=== PATIENT | female | born 1940 | race Caucasian/White ===

== ENCOUNTER → 2016-04-19 | Outpatient (CLI) | payer OTHER ==
[~2016-04-19] MED LIST: IOPAMIDOL (ISOVUE-300) 100 ML BTL IV ONE
== END ==
LOC: FIMAGING 15:23
PROVIDERS: ATTEND Internal Medicine
DX: R18.8 Other ascites (principal); R10.9 Unspecified abdominal pain; R91.8 Other nonspecific abnormal finding of lung field; R63.5 Abnormal weight gain
CPT/HCPCS: 74177; Q9967

== ENCOUNTER 2016-05-26 10:17 | Day surgery (SDC) | payer OTHER ==
[2016-05-26] MEDS ORDERED: LR 1,000 ML IV ONE (11:15)
[2016-05-26] MEDS ORDERED: ceFAZolin 2 GM/DEXTROSE 100 ML IV ONE (11:30)
[2016-05-26] MEDS ORDERED: SKIN ADHESIVE (DERMABOND) 1 EACH TP ONE (12:44)
[2016-05-26] MEDS ORDERED: BUPIVACAINE 0.5% 30 ML SDV ONE (12:45)
[2016-05-26] MEDS ORDERED: MIDAZOLAM 2 MG/2 ML VIAL ONE (13:13)
[2016-05-26] MEDS ORDERED: fentaNYL 100 MCG/2 ML INJ ONE (13:18)
[2016-05-26] MEDS ORDERED: PROPOFOL/EMULSION 500 MG/50 ML BOTTLE IV ONE (13:18)
[2016-05-26] MEDS ORDERED: LIDOCAINE 2% 100 MG/5 ML SYR ONE (13:20)
[2016-05-26] MEDS ORDERED: LIDO/EPI 1% **for epidural** 30 ML SDV ONE (13:36)
[2016-05-26] MEDS ORDERED: LIDOCAINE 1% 30 ML SDV ONE (13:37)
[2016-05-26] MEDS ORDERED: LIDO/EPI 1% **Not for Epidural 20 ML MDV ONE (13:37)
--- NOTE | 2016-05-26 15:59 | GOP ---
[f rep st] OPERATIVE REPORT DATE OF OPERATION: 05/26/2016 SURGEON: Lissa James MD ANESTHESIA: IV general. ANESTHESIOLOGIST: Dr. Berumen. PREOPERATIVE DIAGNOSIS: Ovarian cancer. POSTOPERATIVE DIAGNOSIS: Ovarian cancer. PROCEDURE PERFORMED: Left subclavian PowerPort placement. FINDINGS: Tip in the SVC/RA junction. ESTIMATED BLOOD LOSS: 10 cc. INDICATIONS: The patient is a 75-year-old woman with ovarian cancer. She requires a port for chemo therapy. DESCRIPTION OF PROCEDURE: Velma was brought into the operating room and placed supine on the table. An IV general anesthesia was administered. Her bilateral neck and chest were prepped and draped i n the usual sterile fashion. I infiltrated all sites with 0.5% Marcaine prior to making incisions. I accessed her left subclavian vein with the first attempt with dark return of blood flow. I threa ded the guidewire and removed the needle. Placement was confirmed with fluoroscopy. I created a po cket to accommodate the port in the left chest. I tunneled it up to the insertion site. I measured the port under fluoroscopy and cut it to size. Using the Seldinger technique, I placed a dilator a nd sheath over the wire. I removed the wire and the dilator. I threaded the catheter through the s shea. Placement was confirmed with fluoroscopy. The port withdrew blood easily and was flushed wi th heparin. The pocket was closed with 3-0 Vicryl, followed by 4-0 Monocryl. Dermabond applied. S he was awakened in the operating room, transferred to PACU in stable condition. The chest x-ray josie wed excellent port placement without pneumothorax. /[id number]/MODL
== END 2016-05-26 15:35 | disposition home or self-care (01) ==
LOC: FSGY 10:17
PROVIDERS: ATTEND Surgery
DX: C57.8 Malignant neoplasm of overlapping sites of female genital organs (principal); E78.5 Hyperlipidemia, unspecified; I10 Essential (primary) hypertension; Z90.710 Acquired absence of both cervix and uterus; Z90.722 Acquired absence of ovaries, bilateral; Z88.0 Allergy status to penicillin
CPT/HCPCS: C1788; J0690; J2001; J2250; J2704; J3010

== ENCOUNTER → 2017-01-05 | Outpatient (CLI) | payer OTHER | LOC: FIMAGING 09:36 | PROVIDERS: ATTEND Internal Medicine | DX: Z12.31 Encounter for screening mammogram for malignant neoplasm of breast (principal) | CPT/HCPCS: G0202 ==

== ENCOUNTER → 2018-01-31 | Outpatient (CLI) | payer OTHER | LOC: FIMAGING 11:47 | PROVIDERS: ATTEND Internal Medicine | DX: Z12.31 Encounter for screening mammogram for malignant neoplasm of breast (principal) ==

== ENCOUNTER 2018-04-11 14:30 | Inpatient (IN) | payer OTHER ==
--- NOTE | 2018-04-11 14:38 | EDPHY ---
H & P Time Seen by Provider: 04/11/18 14:38 HPI/ROS: CHIEF COMPLAINT: Weakness HISTORY OF PRESENT ILLNESS: Patient is a history of ovarian cancer. She says that she has had abdominal pain for the past 2 months. Since Sunday she has had a little bit of a cough with worsening shortness of breath and worsening lower abdominal pain. Today associated with decreased oral intake and generalized weakness. Sent [facility] for evaluation. Does not have associated headache, no visual symptoms or focal neurologic changes. Treated 2 weeks ago for a urinary tract infection per family. No history of cardiac dysrhythmia. Symptoms severe today. Worse with any attempts to exert herself. REVIEW OF SYSTEMS: Eye: no change in vision ENT: no sore throat Cardiac: no chest pain or syncope Pulmonary: HPI Abdomen: Recent diarrhea Musculoskeletal: no back pain Skin: no rash Neuro: no headache Constitutional: no fever : Currently on Macrobid for recent diagnosis of UTI A comprehensive 10 point review of systems is otherwise negative aside from elements mentioned in the history of present illness. PAST MEDICAL HISTORY: Includes hypertension, hypothyroid, ovarian cancer Social history: Here with family, nonsmoker General Appearance: Alert and conversant, cooperative. Eyes: No scleral icterus. ENT, Mouth: Dry mucous membranes. Respiratory: Normal respiratory effort, breath sounds equal, lungs are clear to auscultation. Cardiovascular: Irregularly irregular and tachycardic. Gastrointestinal: Bilateral lower abdominal tenderness without rebound or guarding. Neurological: Alert, face symmetric, normal motor and sensory in extremities. Skin: Warm and dry, no rashes. Musculoskeletal: No peripheral edema. Psychiatric: Not agitated. Emergency Department course/MDM: Initial heart rate 121, afebrile, 89% on room air. Patient is tachypneic and tachycardiac with EKG showing rapid atrial fibrillation. Moderate to high suspicion for pulmonary embolism. Plan for IV fluid hydration for clinical dehydration with dry mucous membranes and decreased oral intake, diltiazem drip, labs to include CBC chemistry LFT and lipase and troponin. 1512: I-STAT creatinine is 2.9. Plan for D-dimer, CT abdomen pelvis without IV contrast, chest x-ray, Lovenox 1 milligram/kilogram subcutaneous should be adequate to cover the patient for her atrial fibrillation as well as possible pulmonary embolism. Supplemental oxygen applied, IV diltiazem drip started. IV fluid resuscitation. 1539: Patient alert, blood pressure transiently to 80 systolic on diltiazem drip, 2nd L normal saline IV ordered. Lovenox subcutaneous discussed and consented. 162: free air on CT per Deondre. Abelino stephenson, surgical consultation by Dr. Costa, has seen Dr. James here in the past for procedure. 173: Blood pressure 102 systolic, still on diltiazem drip. Received IV fluid resuscitation in ED. Plan to go to the operating room tonight per Dr. Costa. 1999: Central line placement see procedure note for details. Smoking Status: Never smoked Constitutional: Initial Vital Signs Temperature (C) 36.4 C 04/11/18 14:34 Heart Rate 121 H 04/11/18 14:34 Respiratory Rate 18 04/11/18 14:34 Blood Pressure 147/83 H 04/11/18 14:34 O2 Sat (%) 89 L 04/11/18 14:34 O2 Delivery Mode Room Air Allergies/Adverse Reactions: tetracycline [Tetracycline] Allergy (Intermediate, Verified 04/11/18 14:37) Hives Penicillins Allergy (Mild, Verified 04/11/18 14:37) Rash resveratrol [grapes] Allergy (Verified 04/11/18 14:37) Home Medications: Medication Instructions Recorded Cetirizine [ZyrTEC 10 mg (*)] 10 mg PO DAILY 07/01/14 Cholecalciferol Vit D3 [Vitamin D3 1,000 units PO DAILY 07/01/14 (*)] Lisinopril [Zestril 40 mg (*)] 40 mg PO DAILY 07/01/14 Simvastatin [Zocor] 20 mg PO HS 07/01/14 amLODIPine BESYLATE [Norvasc 5 mg 5 mg PO DAILY #0 tab 07/02/14 (*)] Albuterol [Proventil Inhaler HFA 2 puffs IH Q6 PRN 04/11/18 (*)] Chlorthalidone [Chlorthalidone 25 25 mg PO DAILY 04/11/18 mg (*)] Fluticasone Nasal [Flonase Nasal 2 sprays EACHNARE DAILY 04/11/18 [place] (RX)] Herbals/Supplements -Info Only 1 ea PO DAILY 04/11/18 Methotrexate Sodium [Rheumatrex 7.5 mg PO FR 04/11/18 2.5 mg (RX)] Risedronate Sodium [Actonel] 150 mg PO Q30D 04/11/18 Medical Decision Making - Diagnostics EKG Interpretation: 12-lead EKG interpreted by me; official reading is in computer system. My interpretation is AFib with RVR rate 182 Imaging Results: Imaging Impressions Abdomen/Pelvis CT 04/11/18 15:12 Impression: 1. Free intraperitoneal air of unclear source. Inflammation and fluid appears to be centered principally with small bowel in the central abdomen, however, there is air and stranding anterior to diverticulosis in the sigmoid colon, with equivocal thickening of the sigmoid in the region, making it difficult to exclude diverticulitis. 2. Slight interval worsening of disease. 3. Increased carcinomatosis. 4. Tiny new right middle lobe nodule. 5. Equivocal increase in a left periaortic node. 6. Additional findings, as above. Findings discussed with Hebert Desai M.D., on April 11, 2018 at 1622. Attention: This examination does not use radiographic contrast, and as such, provides only a limited evaluation of the abdomen, pelvis, and retroperitoneum. Chest X-Ray 04/11/18 15:12 Impression: 1. Equivocal left lower lobe infiltrate. If clinically indicated consider obtaining a routine PA chest or noncontrast chest CT for confirmation. 2. Possible cardiomegaly and/or pericardial effusion. Imaging: Discussed imaging studies w/ food service agent Radiologist Procedures: Procedure: Central line placement. Indication: Hypotension and need for pressors. Risks, benefits, alternatives discussed with the patient and family including but not limited to bleeding, infection, vascular injury, and collapsed lung and consent obtained. A timeout was observed. Full maximal sterile barrier technique was used including cap, gown, sterile gloves, large sheet, hand washing and chlorhexidine prep. The area was anesthetized with 1% lidocaine. A 7 [place] triple lumen was placed in the right subclavian vein using standard Seldinger technique. There were no complications. Blood return low pressure, dark blood. Patient tolerated procedure well. CXR results: Appropriate line placement, and no pneumothorax. Xray was interpreted by myself. Radiologist interpretation is pending. The procedure was performed by myself, completed at 8:00 p.m. The patient's room in the ICU. Consult/Admit Bed Type: [facility], Costa 1632 Critical Care Time: Critical care time spent by me, Dr. Desai, exclusively with the care of this patient was 45 minutes, exclusive of PA or CCIE time and exclusive of separate procedures. The organ system at risk was cardiovascular and metabolic and I ordered IV diltiazem, IV fluids, multiple diagnostics and supplemental oxygen to stabilize the patient and prevent worsening of the patient's condition. - Data Points Laboratory Results: Laboratory Results 04/11/18 15:06 04/11/18 15:06 04/11/18 04/11/18 04/11/18 15:10 15:06 15:06 WBC RBC Hgb POC Hgb 17.0 gm/dL H gm/dL (12.6-16.3) Hct POC Hct 50 % H % (38-47) MCV MCH MCHC RDW Plt Count MPV Neut % (Auto) Lymph % (Auto) [place] % (Auto) Eos % (Auto) Baso % (Auto) Nucleat RBC Rel Count Absolute Neuts (auto) Absolute Lymphs (auto) Absolute Monos (auto) Absolute Eos (auto) Absolute Basos (auto) Absolute Nucleated RBC Immature Gran % Immature Gran # PT 14.1 SEC SEC (12.0-15.0) INR 1.07 (0.83-1.16) APTT 26.4 SEC SEC (23.0-38.0) D-Dimer 11.22 ug/mLFEU H ug/mLFEU (0.00-0.50) POC Sodium 133 mEq/L L mEq/L (135-145) Sodium POC Potassium 3.1 mEq/L L mEq/L (3.3-5.0) Potassium POC Chloride 97 mEq/L mEq/L (97-110) Chloride Carbon Dioxide POC Total CO2 18 mEq/L L mEq/L (22-31) Anion Gap POC BUN 67 mg/dL H mg/dL (7-23) BUN Creatinine POC Creatinine 2.9 mg/dL H mg/dL (0.6-1.0) Estimated GFR Glucose POC Glucose 128 mg/dL H mg/dL (70-100) Calcium Total Bilirubin Conjugated Bilirubin Unconjugated Bilirubin AST ALT Alkaline Phosphatase POC Troponin I 0.06 ng/mL ng/mL (0.00-0.08) Total Protein Albumin Lipase Nasal Influenza A PCR Nasal Influenza B PCR 04/11/18 04/11/18 04/11/18 15:06 15:06 14:20 WBC 12.79 10^3/uL H 10^3/uL (3.80-9.50) RBC 5.48 10^6/uL H 10^6/uL (4.18-5.33) Hgb 16.0 g/dL g/dL (12.6-16.3) POC Hgb Hct 48.2 % H % (38.0-47.0) POC Hct MCV 88.0 fL fL (81.5-99.8) MCH 29.2 pg pg (27.9-34.1) MCHC 33.2 g/dL g/dL (32.4-36.7) RDW 14.3 % % (11.5-15.2) Plt Count 345 10^3/uL 10^3/uL (150-400) MPV 10.2 fL fL (8.7-11.7) Neut % (Auto) 87.4 % H % (39.3-74.2) Lymph % (Auto) 5.3 % L % (15.0-45.0) [place] % (Auto) 6.4 % % (4.5-13.0) Eos % (Auto) 0.0 % L % (0.6-7.6) Baso % (Auto) 0.4 % % (0.3-1.7) Nucleat RBC Rel Count 0.0 % % (0.0-0.2) Absolute Neuts (auto) 11.18 10^3/uL H 10^3/uL (1.70-6.50) Absolute Lymphs (auto) 0.68 10^3/uL L 10^3/uL (1.00-3.00) Absolute Monos (auto) 0.82 10^3/uL H 10^3/uL (0.30-0.80) Absolute Eos (auto) 0.00 10^3/uL L 10^3/uL (0.03-0.40) Absolute Basos (auto) 0.05 10^3/uL 10^3/uL (0.02-0.10) Absolute Nucleated RBC 0.00 10^3/uL 10^3/uL (0-0.01) Immature Gran % 0.5 % % (0.0-1.1) Immature Gran # 0.06 10^3/uL 10^3/uL (0.00-0.10) PT INR APTT D-Dimer POC Sodium Sodium 131 mEq/L L mEq/L (135-145) POC Potassium Potassium 3.3 mEq/L L mEq/L (3.5-5.2) POC Chloride Chloride 96 mEq/L L mEq/L (97-110) Carbon Dioxide 18 mEq/l L mEq/l (22-31) POC Total CO2 Anion Gap 17 mEq/L H mEq/L (6-14) POC BUN BUN 76 mg/dL H mg/dL (7-23) Creatinine 2.9 mg/dL H mg/dL (0.6-1.0) POC Creatinine Estimated GFR 16 Glucose 131 mg/dL H mg/dL (70-100) POC Glucose Calcium 8.6 mg/dL mg/dL (8.5-10.4) Total Bilirubin 1.1 mg/dL mg/dL (0.1-1.4) Conjugated Bilirubin 0.7 mg/dL H mg/dL (0.0-0.5) Unconjugated Bilirubin 0.4 mg/dL mg/dL (0.0-1.1) AST 42 IU/L IU/L (14-46) ALT 32 IU/L IU/L (9-52) Alkaline Phosphatase 133 IU/L H IU/L (38-126) POC Troponin I Total Protein 6.2 g/dL L g/dL (6.3-8.2) Albumin 3.3 g/dL L g/dL (3.5-5.0) Lipase 121 IU/L IU/L (23-300) Nasal Influenza A PCR NEGATIVE FOR FLU A (NEGATIVE) Nasal Influenza B PCR NEGATIVE FOR FLU B (NEGATIVE) Medications Given: Norepinephrine 4 mg/ Sodium (Chloride) 504 mls @ 0 mls/hr IV CONT MERRICK; Per Protocol PRN Reason: Protocol Stop: 10/08/18 16:59 Last Admin: 04/11/18 19:44 Dose: 504 mls Albumin Human (Alburx 5) 500 mls @ 0 mls/hr IV ONCE ONE PRN Reason: As Directed Stop: 04/11/18 20:31 Last Admin: 04/11/18 20:19 Dose: 500 mls Discontinued Medications Digoxin (Lanoxin Injections) 125 mcg IVP ONCE ONE Stop: 04/11/18 19:57 Last Admin: 04/11/18 20:15 Dose: 125 mcg Enoxaparin Sodium (Lovenox) 80 mg SC EDNOW ONE Stop: 04/11/18 15:34 Last Admin: 04/11/18 16:21 Dose: 80 mg Sodium Chloride (Ns) 1,000 mls @ 0 mls/hr IV EDNOW ONE; Wide Open PRN Reason: Protocol Stop: 04/11/18 14:42 Last Admin: 04/11/18 15:18 Dose: 1,000 mls Diltiazem/Dextrose (Diltiazem 125mg/125ml (Premix)) 125 mls @ 0 mls/hr IV EDNOW ONE; Titrate PRN Reason: Protocol Stop: 04/11/18 15:31 Last Admin: 04/11/18 17:45 Dose: 125 mls Sodium Chloride (Ns) 1,000 mls @ 0 mls/hr IV EDNOW ONE; Wide Open PRN Reason: Protocol Stop: 04/11/18 15:40 Last Admin: 04/11/18 15:40 Dose: 1,000 mls Sodium Chloride (Ns) 1,000 mls @ 0 mls/hr IV ONCE ONE PRN Reason: Wide Open Stop: 04/11/18 16:31 Last Admin: 04/11/18 16:35 Dose: 1,000 mls Ertapenem 1 gm/ Sodium (Chloride) 100 mls @ 200 mls/hr IV EDNOW ONE PRN Reason: Protocol Stop: 04/11/18 16:55 Last Admin: 04/11/18 17:17 Dose: 100 mls Metoprolol Tartrate (Lopressor Injection) 5 mg IVP ONCE ONE Stop: 04/11/18 16:16 Last Admin: 04/11/18 17:57 Dose: Not Given Point of Care Test Results: Chemistry 04/11/18 04/11/18 15:10 15:06 POC Sodium 133 mEq/L L mEq/L (135-145) POC Potassium 3.1 mEq/L L mEq/L (3.3-5.0) POC Chloride 97 mEq/L mEq/L (97-110) POC Total CO2 18 mEq/L L mEq/L (22-31) POC BUN 67 mg/dL H mg/dL (7-23) POC Creatinine 2.9 mg/dL H mg/dL (0.6-1.0) POC Glucose 128 mg/dL H mg/dL (70-100) POC Troponin I 0.06 ng/mL ng/mL (0.00-0.08) ISTAT H&H 04/11/18 15:10 POC Hgb 17.0 gm/dL H gm/dL (12.6-16.3) POC Hct 50 % H % (38-47) Departure - Departure Disposition: [facility] Inpatient Acute Clinical Impression: EDGAR (acute kidney injury), Free intraperitoneal air Atrial fibrillation Qualifiers: Atrial fibrillation type: paroxysmal Qualified Code(s): I48.0 - Paroxysmal atrial fibrillation Condition: Serious
[2018-04-11] MEDS ORDERED: NS 1,000 ML IV ONE ×3 (14:41→16:30)
[2018-04-11] MEDS ORDERED: DILTIAZEM 125 MG in D5W 125 ML IV ONE (14:57)
--- NOTE | 2018-04-11 15:01 | CPEKG ---
Test Reason : OPEN Blood Pressure : / mmHG Vent. Rate : 182 BPM Atrial Rate : 155 BPM P-R Int : 233 ms QRS Dur : 092 ms QT Int : 265 ms P-R-T Axes : 216 061 017 degrees QTc Int : 461 ms Atrial fibrillation with rapid V-rate Repolarization abnormality, prob rate related Confirmed by Hebert Desai ([id number]) on 04/11/2018 3:01:01 PM Referred By: Hebert Desai Confirmed By:Hebert Desai
[2018-04-11] MEDS: DILTIAZEM HCL/D5W 125 ML IV ONE ×2 (15:32→17:45)
[2018-04-11] MEDS ORDERED: ENOXAPARIN 80 MG/0.8 ML SYR SC ONE (15:33)
[2018-04-11 15:35] LABS: INR 1.07 (0.83-1.16); PROTIME(PATIENT) 14.1 SEC (12.0-15.0)
[2018-04-11 15:42] LABS: PLATELET COUNT 345 10^3/uL (150-400)
[2018-04-11] MEDS ORDERED: METOPROLOL TARTRATE 5 MG/5 ML INJ IVP ONE ×2 (16:15→21:00)
[2018-04-11] MEDS ORDERED: ERTAPENEM 1 GM in NS 100 ML IV ONE (16:26)
--- NOTE | 2018-04-11 16:40 | PDGENHP ---
History and Physical - Chief Complaint malaise, cough, abd pain - History of Present Illness This is a 77 yo female with hx of of ovarian cancer who p/w malaise, chills, cough, abd pain x 2-3 days. She was worse today and presented to [facility] for evaluation and was sent to the ER. Does not have associated headache, no visual symptoms or focal neurologic changes. Treated 2 weeks ago for a urinary tract infection per family. No history of cardiac dysrhythmia. Reports cough x several days. Afebrile. CXR does not show clear pneumonia Abd pain over the last 3 days, generalized, worse in the bilateral lower quadrants. She seems slight distention which she says is normal for her. Very tender She is on MTX for RA Not currently on treatment for Ovarian cancer Denies fevers In the ER she is found to be in Afib with presenting BP in the 140's. Rate is 160's. BP dropped to systolic 80's before medication for Afib. Cardizem drip started and BP stable in the 90s systolic, rate still in the 140's. No hx of CHF. no cp or leg swelling. No hx of Afib. AC started Fond to have EDGAR found to have leukocytosis PAST MEDICAL HISTORY: Includes hypertension, hypothyroid, ovarian cancer Social history: Here with family, nonsmoker FmHx: non contributory CT Abd: free air on CT per Deondre. Abelino 1 g, surgical consultation by Dr. Costa, has seen Dr. James here in the past for procedure. History Information - Allergies/Home Medication List Allergies/Adverse Reactions: tetracycline [Tetracycline] Allergy (Intermediate, Verified 04/11/18 14:37) Hives Penicillins Allergy (Mild, Verified 04/11/18 14:37) Rash resveratrol [grapes] Allergy (Verified 04/11/18 14:37) Home Medications: Cetirizine [ZyrTEC 10 mg (*)] 10 mg PO DAILY 07/01/14 [Last Taken 1 Day Ago ~] Cholecalciferol Vit D3 [Vitamin D3 (*)] 1,000 units PO DAILY 07/01/14 [Last Taken 1 Day Ago ~05/25/16] Lisinopril [Zestril 40 mg (*)] 40 mg PO DAILY 04/29/15 [Last Taken 1 Day Ago ~] Simvastatin [Zocor] 20 mg PO HS 07/01/14 [Last Taken 1 Week Ago ~05/19/16] Albuterol [Proventil Inhaler HFA (*)] 2 puffs IH Q6 PRN 04/11/18 [Last Taken Unknown] Chlorthalidone [Chlorthalidone 25 mg (*)] 25 mg PO DAILY 04/11/18 [Last Taken Unknown] Fluticasone Nasal [Flonase Nasal [place] (RX)] 2 sprays EACHNARE DAILY 04/11/18 [ Last Taken Unknown] Herbals/Supplements -Info Only 1 ea PO DAILY 04/11/18 [Last Taken Unknown] Methotrexate Sodium [Rheumatrex 2.5 mg (RX)] 7.5 mg PO FR 04/11/18 [Last Taken Unknown] Risedronate Sodium [Actonel] 150 mg PO Q30D 04/11/18 [Last Taken Unknown] I have personally reviewed and updated: medical history, social history - Social History Smoking Status: Never smoked Review of Systems Review of Systems: ROS: 10pt was reviewed & negative except for what was stated in HPI & below Physical Exam Physical Exam: Temp Pulse Resp BP Pulse Ox 36.4 C 149 H 18 99/64 L 97 04/11/18 14:34 04/11/18 16:00 04/11/18 14:34 04/11/18 16:00 04/11/18 16:00 Constitutional: no apparent distress Eyes: PERRL Ears, Nose, Mouth, Throat: moist mucous membranes, hearing normal Cardiovascular: irregularly irregular, tachycardia Respiratory: no respiratory distress, reduced air movement Gastrointestinal: tenderness (bilateral lower quadrants), distension, No guarding Skin: warm Neurologic: AAOx3 Psychiatric: interacting appropriately, not anxious, not encephalopathic Lab Data & Imaging Review 04/11/18 15:06 04/11/18 15:06 WBC 12.79 10^3/uL (3.80-9.50) H 04/11/18 15:06 RBC 5.48 10^6/uL (4.18-5.33) H 04/11/18 15:06 Hgb 16.0 g/dL (12.6-16.3) 04/11/18 15:06 POC Hgb 17.0 gm/dL (12.6-16.3) H 04/11/18 15:10 Hct 48.2 % (38.0-47.0) H 04/11/18 15:06 POC Hct 50 % (38-47) H 04/11/18 15:10 MCV 88.0 fL (81.5-99.8) 04/11/18 15:06 MCH 29.2 pg (27.9-34.1) 04/11/18 15:06 MCHC 33.2 g/dL (32.4-36.7) 04/11/18 15:06 RDW 14.3 % (11.5-15.2) 04/11/18 15:06 Plt Count 345 10^3/uL (150-400) 04/11/18 15:06 MPV 10.2 fL (8.7-11.7) 04/11/18 15:06 Neut % (Auto) 87.4 % (39.3-74.2) H 04/11/18 15:06 Lymph % (Auto) 5.3 % (15.0-45.0) L 04/11/18 15:06 [place] % (Auto) 6.4 % (4.5-13.0) 04/11/18 15:06 Eos % (Auto) 0.0 % (0.6-7.6) L 04/11/18 15:06 Baso % (Auto) 0.4 % (0.3-1.7) 04/11/18 15:06 Nucleat RBC Rel Count 0.0 % (0.0-0.2) 04/11/18 15:06 Absolute Neuts (auto) 11.18 10^3/uL (1.70-6.50) H 04/11/18 15:06 Absolute Lymphs (auto) 0.68 10^3/uL (1.00-3.00) L 04/11/18 15:06 Absolute Monos (auto) 0.82 10^3/uL (0.30-0.80) H 04/11/18 15:06 Absolute Eos (auto) 0.00 10^3/uL (0.03-0.40) L 04/11/18 15:06 Absolute Basos (auto) 0.05 10^3/uL (0.02-0.10) 04/11/18 15:06 Absolute Nucleated RBC 0.00 10^3/uL (0-0.01) 04/11/18 15:06 Immature Gran % 0.5 % (0.0-1.1) 04/11/18 15:06 Immature Gran # 0.06 10^3/uL (0.00-0.10) 04/11/18 15:06 PT 14.1 SEC (12.0-15.0) 04/11/18 15:06 INR 1.07 (0.83-1.16) 04/11/18 15:06 APTT 26.4 SEC (23.0-38.0) 04/11/18 15:06 D-Dimer 11.22 ug/mLFEU (0.00-0.50) H 04/11/18 15:06 POC Sodium 133 mEq/L (135-145) L 04/11/18 15:10 Sodium 131 mEq/L (135-145) L 04/11/18 15:06 POC Potassium 3.1 mEq/L (3.3-5.0) L 04/11/18 15:10 Potassium 3.3 mEq/L (3.5-5.2) L 04/11/18 15:06 POC Chloride 97 mEq/L (97-110) 04/11/18 15:10 Chloride 96 mEq/L (97-110) L 04/11/18 15:06 Carbon Dioxide 18 mEq/l (22-31) L 04/11/18 15:06 POC Total CO2 18 mEq/L (22-31) L 04/11/18 15:10 Anion Gap 17 mEq/L (6-14) H 04/11/18 15:06 POC BUN 67 mg/dL (7-23) H 04/11/18 15:10 BUN 76 mg/dL (7-23) H 04/11/18 15:06 Creatinine 2.9 mg/dL (0.6-1.0) H 04/11/18 15:06 POC Creatinine 2.9 mg/dL (0.6-1.0) H 04/11/18 15:10 Estimated GFR 16 04/11/18 15:06 Glucose 131 mg/dL (70-100) H 04/11/18 15:06 POC Glucose 128 mg/dL (70-100) H 04/11/18 15:10 Calcium 8.6 mg/dL (8.5-10.4) 04/11/18 15:06 Total Bilirubin 1.1 mg/dL (0.1-1.4) 04/11/18 15:06 Conjugated Bilirubin 0.7 mg/dL (0.0-0.5) H 04/11/18 15:06 Unconjugated Bilirubin 0.4 mg/dL (0.0-1.1) 04/11/18 15:06 AST 42 IU/L (14-46) 04/11/18 15:06 ALT 32 IU/L (9-52) 04/11/18 15:06 Alkaline Phosphatase 133 IU/L (38-126) H 04/11/18 15:06 POC Troponin I 0.06 ng/mL (0.00-0.08) 04/11/18 15:06 Total Protein 6.2 g/dL (6.3-8.2) L 04/11/18 15:06 Albumin 3.3 g/dL (3.5-5.0) L 04/11/18 15:06 Lipase 121 IU/L (23-300) 04/11/18 15:06 Assessment & Plan Assessment: #Perforated Bowel #Sepsis #EDGAR #Acute Afib #Hypokalemia #Metabolic Acidosis #Ovarian cancer Dr. Costa has been consulted by the ER She is hypotensive, will stop the Cardizem drip. Give IV Metoprolol now. Stat TTE. Cards consult Additional IVF Pressors if needed. Will d/w Dr. Costa line placement vs PICC Ertapenem given in the ER [place], strict I's/O No additional Lovenox for now, was given one time dose in the ER. May need Heparin pending Cards consult. Will need to coordinate with surgery Reports full Code total critical care time is 60 minutes
[2018-04-11] MEDS ORDERED: ALTEPLASE 2 MG VIAL IVP PRN (16:50)
[2018-04-11] MEDS ORDERED: ONDANSETRON DISINTEGRATING 4 MG TAB PO PRN (17:00)
[2018-04-11] MEDS ORDERED: ACETAMINOPHEN 325 MG TAB PO PRN (17:00)
[2018-04-11] MEDS ORDERED: oxyCODONE IR 5 MG TAB PO PRN ×2 (17:00→20:52)
[2018-04-11] MEDS ORDERED: ONDANSETRON 4 MG/2 ML VIAL IVP PRN ×2 (17:00→20:52)
[2018-04-11] MEDS ORDERED: PROTOCOL POTASSIUM 1 DOSE MISC PRN (17:03)
[2018-04-11] MEDS ORDERED: PROTOCOL MAGNESIUM 1 DOSE IV PRN (17:03)
--- NOTE | 2018-04-11 17:45 | ECHO ---
[email or web address] [address] Main: [phone] Fax: Transthoracic Echocardiogram Name: MARIANO LOVE MR#: [id number] Study Date: 04/11/2018 Study Time: 04:27 PM Date of : 1940 Age: 77 year(s) Height: 160 cm (63 in.) Weight: 77.11 kg (170 lb.) BSA: 1.8 m2 Gender: Female Examination: Echo Indication: a fib, sepsis Image Quality: Adequate Contrast: Requested by: Atul Keyes BP: 99 mmHg/64 mmHg Heart Rate: Rhythm: Indication: a fib, sepsis Procedure Staff Ornamenter: Lisa Connors [facility] Reading Physician: Tay Austin MD Requesting Provider: Conclusions: Normal size left ventricle. No LV hypertrophy. Normal global systolic LV function. The ejection fraction is visually estimated to be 55 %. No regional wall motion abnormality. Normal size right ventricle. The left atrium is normal in size. The mitral valve is normal in appearance and function. Trivial mitral valve regurgitation. Aortic valve is not well visualized. There is no significant aortic valve regurgitation. No aortic valve stenosis is present. The tricuspid valve is normal in appearance and function. Trivial tricuspid valve regurgitation. Pulmonary valve not well visualized. The aorta is normal. Normal size ascending aorta measuring 2.8 cm. Trivial pericardial effusion. Limited/poor acoustic windows. Measurements: Chambers Valvular Assessment AV/MV Valvular Assessment TV/PV Normal Normal Normal Name Value Range Name Value Range Name Value Range Ao Rosa (2D): 2.7 cm (1.4 cm-2.6 AV Vmax: 1.46 m/s (1 m/s-1.7 PV Vmax: 0.77 m/s (0.6 m/s-0.9 cm) m/s) m/s) IVSd (2D): 1.1 cm (0.6 cm-1.1 AV maxP mmHg ( - ) PV PGmax: 2 mmHg ( - ) cm) AV meanP mmHg ( - ) LVDd (2D): 3.9 cm (3.9 cm-5.3 LVOT Vmax: 0.92 m/s (0.7 m/s-1.1 cm) m/s) Patient: MARIANO LOVE Study Date: 04/11/2018 Page 1 of 2 04:27 PM LVDs (2D): 2.2 cm (2.1 cm-4 DERICK (Vmax): 1.6 cm2 ( - ) cm) DERICK (VTI): 1.9 cm ( - ) LVPWd (2D): 1.0 cm ( - ) MV E Vmax: 0.97 m/s ( - ) LVOTd 1.8 cm 1.8 cm mm MV PHT: 0.051 s ( - ) Visual EF: 55 % MVA (PHT): 4.3 s ( - ) RVDd(2D): 2.5 cm (1.9 cm-3.8 cmmm) Continued Measurements: Chambers Valvular Assessment AV/MV Name Value Name Value LADs: 3.2 cm MV DecTime: 187 m/s LADs Lon.1 cm LA Area: 17.1 cm2 LA Volume: 43 ml LA Volume Index: 23.9 ml/m2 Additional Vessels Name Value Ao Ascendin.8 cm Inferior Vena Cava: 1.3 cm Findings: Left Ventricle: Normal size left ventricle. No LV hypertrophy. Normal global systolic LV function. The ejection fraction is visually estimated to be 55 %. No regional wall motion abnormality. Right Ventricle: Normal size right ventricle. Normal RV function. Left Atrium: The left atrium is normal in size. Right Atrium: The right atrium is normal in size. Mitral Valve: The mitral valve is normal in appearance and function. Trivial mitral valve regurgitation. No mitral stenosis is present. Aortic Valve: Aortic valve is not well visualized. There is no significant aortic valve regurgitation. No aortic valve stenosis is present. Tricuspid Valve: The tricuspid valve is normal in appearance and function. Trivial tricuspid valve regurgitation. Pulmonic Valve: Pulmonary valve not well visualized. Aorta: The aorta is normal. Normal size aortic root measuring 2.7 cm. Normal size ascending aorta measuring 2.8 cm. IVC: The IVC is normal sized. Pericardium: Trivial pericardial effusion. There is pericardial fat. Exam Comments: Limited/poor acoustic windows. (No Signature Object) Patient: MARIANO LOVE Study Date: 04/11/2018 Page 2 of 2 04:27 PM [id number]
--- NOTE | 2018-04-11 17:53 | PDGENHP ---
History & Physical Chief Complaint: Abdominal pain History of Present Illness: 77 y/o F with hx of ovarian CA presents with 2-3 days of chills and malaise, as well as abdominal pain. CT shows free air. Relevant Physical Exam: General: Ill appearing elderly female. HEENT: normocephalic, atraumatic, mmm. Cardiac: irregularly irregular. Chest: CTAB, no increased wob. Abdomen: diffusely ttp, no reboud tenderness, no guarding. Neuro: alert and oriented. Psych: appropriate mood and affect Cardiorespiratory Assessment: 77 y/o F with hx of ovarian CA presents with abdominal pain. Plan for surgery once stablized. Discussed all risks and options. Plan for exploratory laparoscopy, poss. laparotomy, poss. bowel resection. Pt wishes to proceed.
[2018-04-11] MEDS ORDERED: BUPIVACAINE 0.5% 30 ML SDV ONE (19:30)
[2018-04-11] MEDS ORDERED: HEPARIN 1000 UNIT/1 ML MDV ONE (19:30)
[2018-04-11] MEDS ORDERED: ceFAZolin 1 GM/5 ML SYR ONE (19:32)
[2018-04-11] MEDS: NOREPINEPHRINE BITARTRATE 4 MG in NS 500 ML IV SCH (19:44)
[2018-04-11] MEDS ORDERED: DIGOXIN 500 MCG/2 ML AMP IVP ONE (19:56)
[2018-04-11] MEDS ORDERED: ALBUMIN 5% 500 ML IV ONE (20:30)
[2018-04-11] MEDS ORDERED: HYDROmorphONE/DILAUDID 1 MG/ML INJ IVP PRN (20:52)
[2018-04-11] MEDS ORDERED: fentaNYL 100 MCG/2 ML INJ IVP PRN (20:52)
[2018-04-11] MEDS ORDERED: ACETAMINOPHEN 500 MG TAB PO PRN (20:52)
[2018-04-11] MEDS ORDERED: HYDROCODONE/APAP 5/325 TAB PO PRN (20:52)
[2018-04-11] MEDS ORDERED: NALOXONE HCL 0.4 MG/ML INJ IVP PRN (20:52)
[2018-04-11] MEDS ORDERED: PROMETHAZINE HCL 25 MG/ML INJ IVP PRN (20:52)
--- NOTE | 2018-04-11 21:06 | PDANEPAE ---
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 [facility] PLEURAL EFFUSIONS 05/02/2016 - Neurologic History Hx Cerebrovascular Accident: No Hx Seizures: No Hx Dementia: No - Endocrine History Hx Diabetes: No Endocrine History Comment: THYROID GOITER - Renal History Hx Renal Disorders: No - Liver History Hx Hepatic Disorders: No - Neurological & Psychiatric Hx Hx Neurological and Psychiatric Disorders: No - Cancer History Hx Cancer: Yes Cancer History Comment: OVARIAN WITH METS TO RECTUM - Congenital Disorder History Hx Congenital Disorders: No - GI History Hx Gastrointestinal Disorders: Yes Gastrointestinal History Comment: CONSTIPATION - Other Health History Other Health History: TRANSFUSION POST SURG 04/2016. OSTEOPENIA. ARTHRITIS - Chronic Pain History Chronic Pain: Yes (LOWER RT ABD) - Surgical History Prior Surgeries: HYSTERECTOMY/BSO SOB POST OP PLEURAL EFFUSION @ [facility] 05/01/2016. [facility] CATARACTS. D&C WITH ABLATION. SINUS ANE Review of Systems Review of Systems: - Exercise capacity METS (RN): 4 METS ANE Patient History - Allergies Allergies/Adverse Reactions: tetracycline [Tetracycline] Allergy (Intermediate, Verified 04/11/18 14:37) Hives Penicillins Allergy (Mild, Verified 04/11/18 14:37) Rash resveratrol [grapes] Allergy (Verified 04/11/18 14:37) - Home Medications Home Medications: Cetirizine [ZyrTEC 10 mg (*)] 10 mg PO DAILY 07/01/14 [Last Taken 1 Day Ago ~] Cholecalciferol Vit D3 [Vitamin D3 (*)] 1,000 units PO DAILY 07/01/14 [Last Taken 1 Day Ago ~05/25/16] Lisinopril [Zestril 40 mg (*)] 40 mg PO DAILY 07/01/14 [Last Taken 1 Day Ago ~] Simvastatin [Zocor] 20 mg PO HS 07/01/14 [Last Taken 1 Week Ago ~05/19/16] Albuterol [Proventil Inhaler HFA (*)] 2 puffs IH Q6 PRN 04/11/18 [Last Taken Unknown] Chlorthalidone [Chlorthalidone 25 mg (*)] 25 mg PO DAILY 04/11/18 [Last Taken Unknown] Fluticasone Nasal [Flonase Nasal Thurman (RX)] 2 sprays EACHNARE DAILY 04/11/18 [ Last Taken Unknown] Herbals/Supplements -Info Only 1 ea PO DAILY 04/11/18 [Last Taken Unknown] Methotrexate Sodium [Rheumatrex 2.5 mg (RX)] 7.5 mg PO FR 04/11/18 [Last Taken Unknown] Risedronate Sodium [Actonel] 150 mg PO Q30D 04/11/18 [Last Taken Unknown] - NPO status NPO Status: no food or drink >8 hours NPO Since - Liquids (Date): 04/10/18 NPO Since - Liquids (Time): 12:00 NPO Since - Solids (Date): 04/10/18 NPO Since - Solids (Time): 12:00 - Anes Hx Anes Hx: no prior problems - Smoking Hx Smoking Status: Never smoked - Alcohol Use Alcohol Use: None - Family Anes Hx Family Anes Hx: none ANE Labs/Vital Signs - Labs Result Diagrams: 04/11/18 15:06 04/11/18 15:06 - Vital Signs Blood Pressure: 88/48 Heart Rate: 120 Respiratory Rate: 30 O2 Sat (%): 97 Height: 160.02 cm Weight: 77.111 kg ANE Physical Exam - Airway Neck exam: FROM Mallampati Score: Class 2 Mouth exam: normal dental/mouth exam - Pulmonary Pulmonary: no respiratory distress - Cardiovascular Cardiovascular: tachycardia - ASA Status ASA Status: III ANE Anesthesia Plan Anesthesia Plan: general endotracheal anesthesia Lines/Monitors: arterial line
[2018-04-11] MEDS ORDERED: fentaNYL 100 MCG/2 ML INJ ONE (21:23)
[2018-04-11] MEDS ORDERED: KETAMINE 200 MG/20 ML VIAL ONE (21:24)
[2018-04-11] MEDS ORDERED: PROPOFOL 200 MG/20 ML VIAL ONE (21:24)
--- NOTE | 2018-04-11 22:06 | SOAPPROG ---
RICKIE Progress Note Assessment/Plan: Assessment: 77-YEAR-OLD FEMALE WITH OVARIAN CANCER WHO IS STATUS POST CHEMOTHERAPY WELL THE STATUS POST TOTAL ABDOMINAL HYSTERECTOMY AND OMENTECTOMY. SHE PRESENTS TONIGHT WITH SUDDEN ABDOMINAL PAIN AND CT SCAN REVEALS A SMALL AMOUNT OF FREE AIR IN THE EPIGASTRIUM AND UPPER ABDOMEN. NO EVIDENCE OF TUMOR RECURRENCE BOWEL OBSTRUCTION OR OTHER ETIOLOGIES 80 CM2 [place]ENT [place] [id number] SHE DOES HAVE A LOW-GRADE FEVER HEENT NONICTERIC/CHEST CLEAR AND SYMMETRIC/COR REGULAR TACHYCARDIA WITH AFIB ABDOMEN IS SOFT BUT DISTENDED AND TENDER IN THE EPIGASTRIUM WITH DECREASED BOWEL SOUNDS IMPRESSION IS FREE AIR CONSISTENT WITH A VISCERAL PERFORATION Plan: TO THE OR FOR LAPAROSCOPY AND/OR LAPAROTOMY/RISKS AND OPTIONS BEEN FULLY DISCUSSED WITH THE PATIENT AND FAMILY WHO WISH TO PROCEED 04/11/18 22:02 Objective: Vital Signs Temp Pulse Resp BP Pulse Ox 36.9 C 120 H 30 H 88/48 L 97 04/11/18 20:40 04/11/18 21:10 04/11/18 21:10 04/11/18 21:10 04/11/18 21:10 04/10/18 04/11/18 04/12/18 05:59 05:59 05:59 Intake Total 3500 Balance 3500 PT 14.1 SEC (12.0-15.0) 04/11/18 15:06 INR 1.07 (0.83-1.16) 04/11/18 15:06 ICD10 Worksheet Patient Problems: Problems Problem Status Onset EDGAR (acute kidney injury) Acute Atrial fibrillation Acute Free intraperitoneal air Acute Hypertension, malignant Acute
[2018-04-11] MEDS ORDERED: THROMBIN (BOVINE) 20,000 UNIT SPRAY TP ONE (23:39)
[2018-04-12] MEDS ORDERED: PROPOFOL 200 MG/20 ML VIAL ONE (00:02)
[2018-04-12] MEDS ORDERED: HYDROmorphONE/DILAUDID 1 MG/ML INJ IVP PRN (00:46)
[2018-04-12] MEDS ORDERED: NALOXONE HCL 0.4 MG/ML INJ IVP PRN (00:46)
[2018-04-12] MEDS ORDERED: fentaNYL 100 MCG/2 ML INJ IVP PRN (00:46)
--- NOTE | 2018-04-12 00:54 | POSTOPPROG ---
Post Op Note Date of Operation: 04/12/18 Surgeon: Nilo Costa Anesthesiologist: ANISHA Anesthesia: GET(General Endotracheal) Pre-op Diagnosis: PERFORATED VISCUS Post-op Diagnosis: PERFORATED SIGMOID WITH DIFFUSE PERITONITIS/ SMALL AREA OF POSSIBLE OVARIAN Indication: PERITONITIS Procedure: LAPAROSOPY, LAPAROTOMY, SIGMOID RESECTION WITH COLOSTOMY AND NADIA ENCISO Findings: PERFORATED SIGMOID WITH PERITONITIS AND SMALL NODULES ON MESENTERY Inf/Abcess present in the surg proc area at time of surgery?: Yes Depth: Organ Space EBL: Minimal Complications: 0 Drains: Wound Vac Specimen(s): SIGMOID, CULTURES
--- NOTE | 2018-04-12 00:55 | POSTANESTH ---
Post Anesthetic Evaluation Cardiovascular Status: Normal, Stable, Similar to Pre-Op Cond Respiratory Status: Requires Airway Assist Level of Consciousness/Mental Status: Unconscious Pain Control: Adequate, Prn Tx Ordered Nausea/Vomiting Control: Adequate, Prn Tx Ordered Complications Possibly Related to Anesthesia: None Noted
[2018-04-12] MEDS ORDERED: PROPOFOL/EMULSION 100 ML IV SCH ×2 (01:00→01:30)
[2018-04-12] MEDS ORDERED: ONDANSETRON 4 MG/2 ML VIAL IVP PRN (01:00)
[2018-04-12] MEDS ORDERED: MIDAZOLAM 2 MG/2 ML VIAL IVP PRN (01:01)
[2018-04-12] MEDS: NOREPINEPHRINE BITARTRATE 4 MG in NS 500 ML IV SCH ×4 (01:02→21:07)
[2018-04-12] MEDS ORDERED: VASOPRESSIN 25 UNIT in NS 250 ML IV SCH (01:15)
[2018-04-12] MEDS ORDERED: fentaNYL/NACL 100 ML IV SCH (01:30)
[2018-04-12] MEDS ORDERED: DIGOXIN 500 MCG/2 ML AMP IVP SCH (02:00)
[2018-04-12] MEDS: ATORVASTATIN CALCIUM 10 MG TAB PO SCH ×2 (02:14→22:30)
[2018-04-12 02:24] LABS: PLATELET COUNT 307 10^3/uL (150-400)
[2018-04-12] MEDS: D5W 1/2 NS W/ 20 KCl/L 1,000 ML IV SCH ×2 (02:26→14:16)
[2018-04-12] MEDS: POTASSIUM Cl (KCl) 50 ML IV SCH ×3 (03:29→04:43)
[2018-04-12 06:18] LABS: PLATELET COUNT 282 10^3/uL (150-400)
[2018-04-12] MEDS: ERTAPENEM 1 GM in NS 100 ML IV SCH (08:30)
[2018-04-12] MEDS ORDERED: MAGNESIUM SULF 1 GM/DEXTROSE 100 ML IV ONE (09:27)
--- NOTE | 2018-04-12 09:41 | GCON ---
[f rep st] CONSULTATION SIDE SHOW ENTERTAINER CONSULTATION REFERRING PHYSICIAN: Atul Keyes MD I was asked to see patient by Dr. Atul Keyes. REASON FOR ADMISSION: Perforated bowel. Ms. Dominguez is a 77-year-old white female with a past medic al history of atrial fibrillation, hypothyroidism, ovarian cancer. She had a 2- to 3-day history of abdominal pain associated with chills. She was brought to the emergency room, found to be in atrial fibrillation. She was begun on a Cardizem drip at that time. She was also found to have a perforate d bowel. She was seen by Dr. Pantera Costa, taken to the operating room, where she underwent laparot josie, sigmoid resection with colostomy and Adri's for a perforated sigmoid with peritonitis. She was then admitted to the Intensive Care Unit on mechanical ventilation. Patient is currently awake a nd alert on mechanical ventilation and not complaining of any pain. REVIEW OF SYSTEMS: A 10-point review of systems is attempted but unable to be performed secondary to mechanical ventilation. PAST MEDICAL HISTORY: Again, significant for hypertension, hypothyroidism, ovarian cancer, hyperchol esterolemia. FAMILY HISTORY: Noncontributory. ALLERGIES: Tetracycline, penicillins. SOCIAL HISTORY: Lifelong never smoker. No alcohol use. She is , has excellent family suppor t. MEDICATIONS: Her medications at home include: 1. Zyrtec. 2. Vitamin D. 3. Zestril. 4. Zocor. 5. Proventil. 6. Chlorthalidone. 7. Flonase. 8. Methotrexate. 9. Actonel. OBJECTIVE: VITAL SIGNS: On physical exam, blood pressure 112/45, pulse 74, respirations 16, she is afebrile. Oxygen saturation 98% on 40% FiO2 and mechanical ventilation. GENERAL: She is a mildly o verweight 77-year-old white female who is awake and on mechanical ventilation. HEENT: Eyes are KIRBY , EOMI. Throat, endotracheal tube is in good position. NECK: Supple. There is no cervical adenopa thy. CARDIOVASCULAR: Heart is irregularly irregular with a 2/6 systolic murmur at the left sternal border without radiation. RESPIRATORY: Lungs show diminished breath sounds. A few bibasilar crackl es but no wheeze. GI: Abdomen is soft. Abdominal wound is open but bandaged. Bowel sounds are dim inished. EXTREMITIES: No clubbing, cyanosis or edema. LABORATORIES: White count is 14.6, hemoglobin 11, hematocrit 34, platelet count is 282. Sodium 135, potassium 4.1, chloride 109, CO2 17, BUN 64, creatinine is 1.8, glucose is 111, AST is elevated at 8 7, ALT is elevated at 61. Influenza A and B are negative. IMAGING: Chest x-ray interpreted by myself shows mild cardiomegaly, central line in good position, m ild fluid overload. IMPRESSION: 1. Status post perforated sigmoid. 2. Peritonitis. 3. Status post laparotomy with sigmoid resection with colostomy and Adri's. 4. A history ovarian cancer. 5. Hypertension. 6. Hypothyroidism. RECOMMENDATION: 1. Agree with current antibiotic coverage. 2. Patient to return to the OR for washout, likely, some time today. 3. Adequate pain control. 4. Continue mechanical ventilation for now. 5. DVT and PE prophylaxis. 6. Stress ulcer prophylaxis. 7. Adequate sedation. Thank you very much for allowing me to participate in the care of this interesting patient. Will fol low along with you. /[id number]/MODL
[2018-04-12] MEDS: FLUCONAZOLE/NaCl 100 ML IV SCH (10:01)
[2018-04-12] MEDS: FLUTICASONE NASAL 120 SPRAYS/16 GM MDI EACHNARE SCH (10:03)
[2018-04-12] MEDS: CETIRIZINE 10 MG TAB PO SCH (10:13)
--- NOTE | 2018-04-12 10:27 | HOSPPROG ---
Hospitalist Progress Note Assessment/Plan: DIAGNOSES: * acute sepsis/shock with organ failure, requiring ongoing pressor at moment * peritonitis; status post partial bowel resection, Adri pouch, drain in place * sigmoid bowel perforation (some nodules on bowel question if related to ovarian disease) * acute hypox/hypercarbic resp failure requiring mechanical ventilator * Acute kidney injury * Acute metabolic acidosis due to above * AFib rapid rate * Expected postop anemia * History of ovarian carcinoma * History of hypertension PLANS: * Continue current antibiotic therapy, pending cultures * Continue supportive care with fluid resuscitation and pressors * Continue current ventilator support * Back to OR for re-exploration, assessment of bowel and washout * Follow renal function, electrolytes closely * DVT prophylaxis, will order Lovenox after she goes back to OR * Ulcer prophylaxis, will order famotidine Seen by me today on hospitals rounds as well as multidisciplinary rounds Reviewed today with Dr. 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, my review: On vent FiO2 is 40%, her lung compliance is good and she is working well with the ventilator Exam: Sedated skin warm dry color ok resps per ventilator lungs clear BSs heart regular abd distended, no bowel sounds, tender, dressings dry limbs warm, no edema iv site ok Lab data: Some improvement in renal function Anion gap improved, some hyperchloremia White blood cell count of 14.7, some mild postop anemia Microbiology: Cultures of blood and wound currently all pending Imaging: I reviewed images from today's abdominal x-ray, nonspecific bowel gas pattern, NG tube in proper position, drain in place Objective: Vital Signs Temp Pulse Resp BP Pulse Ox 37.5 C 79 14 111/42 L 97 04/12/18 09:00 04/12/18 10:00 04/12/18 10:00 04/12/18 10:00 04/12/18 10:00 Microbiology 04/11/18 22:53 Gram Stain - Final Peritoneal Fluid - Eswab Laboratory Results 04/12/18 06:00 04/12/18 06:00 04/11/18 04/12/18 04/13/18 06:59 06:59 06:59 Intake Total 5401 Output Total 515 Balance 4886 PT 14.1 SEC (12.0-15.0) 04/11/18 15:06 INR 1.07 (0.83-1.16) 04/11/18 15:06 - Time Spent With Patient Time Spent with Patient: greater than 35 minutes Time Spent with Patient: Greater than 35 minutes spent on this patients care, greater than 50% of time spent counseling, educating, and coordinating care regarding the above mentioned plan. ICD10 Worksheet Patient Problems: Problems Problem Status Onset EDGAR (acute kidney injury) Acute Atrial fibrillation Acute Free intraperitoneal air Acute Hypertension, malignant Acute
--- NOTE | 2018-04-12 11:07 | PDMN ---
Medical Necessity Medical necessity: MC Bowel sgy: colectomy with or without ostomy 4 days SOP: Laparoscopy, Laparotomy, sigmoid resection with colostomy and Leal's , drain -- 77 yr old F with hx of ovarian Ca with malaise, chills, cough, abd pain X 2-3 days- worse today, found to be in A fib in ED- found to have perf. bowel, sepsis, EDGAR, hypokalemia, Met. acidosis, hypotensive, anticipate > 2 MN.
--- NOTE | 2018-04-12 12:05 | ASMTCASEMG ---
Living Arrangements What is your living Answers: With Spouse arrangement? Who do you live with? Type Of Residence What kind of residence do Answers: House you live in? Discharge Plan Comments Coordination Status Comments Notes: Patient is a 77yo female with a hx of ovarian cancer who is being admitted for perforated bowel, sepsis, EDGAR, acute AFIB, hypokalemia, metabolic acidosis, and ovarian cancer. OT/PT have been ordered. D/C plan TBD. CM will follow. Date Signed: 04/12/2018 12:04 PM Electronically Signed By:Mesha Zamora LCSW
--- NOTE | 2018-04-12 14:09 | SOAPPROG ---
SOAP Progress Note Assessment/Plan: Assessment/plan: 77 y/o M s/p laparoscopy, laparotomy, sigmoid resection with colostomy and hartmans pouch for perforated sigmoid POD #1 Intubated. Ok to extubate today. Continue IV abx. Wound: continue wound vac. Possibility of bringing pt back to OR over the weekend for additional washout and vac change. Continue NPO and NG tube. S: Intubated, but nods "yes" when asked if she is doing ok. O: Alert Afebrile VSS Ctab, no increased wob Abdomen: soft, attp, moderately distended, absent bowel sounds, wound vac to suction with good seal. 04/12/18 14:03 Objective: Vital Signs Temp Pulse Resp BP Pulse Ox 37.5 C 81 16 126/48 H 97 04/12/18 09:00 04/12/18 11:34 04/12/18 11:34 04/12/18 11:00 04/12/18 11:34 Microbiology 04/11/18 22:53 Gram Stain - Final Peritoneal Fluid - Eswab Laboratory Results 04/12/18 06:00 04/12/18 06:00 04/11/18 04/12/18 04/13/18 05:59 05:59 05:59 Intake Total 5401 Output Total 515 Balance 4886 PT 14.1 SEC (12.0-15.0) 04/11/18 15:06 INR 1.07 (0.83-1.16) 04/11/18 15:06 ICD10 Worksheet Patient Problems: Problems Problem Status Onset EDGAR (acute kidney injury) Acute Atrial fibrillation Acute Free intraperitoneal air Acute Hypertension, malignant Acute
[2018-04-12] MEDS: HYDROmorphONE/DILAUDID 1 MG/ML INJ IVP PRN ×2 (17:31→23:19)
--- NOTE | 2018-04-12 18:28 | GCON ---
[f rep st] CONSULTATION MEDICAL ONCOLOGY FOLLOWUP CONSULTATION DATE OF CONSULTATION: 04/12/2018 REFERRING PHYSICIAN: Lobo Pablo MD REASON FOR CONSULTATION: Ongoing management of ovarian cancer in the setting of bowel perforation. RECOMMENDATIONS: 1. Agree with postoperative management as you are doing. 2. Treatment with Avastin will be suspended at this time. 3. Await pathology results to know if there is active disease or not at this time. ASSESSMENT: This 77-year-old white female was is now admitted after presenting to the office yesterd ay, not feeling well. She had significant abdominal pain and was sent to the emergency room where sh e was found to have perforated viscus. She was operated upon by Dr. Nilo Costa, who found a perfo rated sigmoid colon with possible metastatic lesions. The patient had been on Avastin and her last d ose was the March. 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 She was treated with first-clint e therapy with carboplatin, paclitaxel. Subsequently, she was treated after she developed a recurren ce in 2018, was treated with Gemzar and carboplatin, as well as bevacizumab. Currently, she is on ma intenance therapy with bevacizumab. Unfortunately, one of the side effects or complications of bevacizumab treatment is bowel perforation . We will therefore need to suspend that particular medication at this time. Whether patient is a c andidate for additional therapy or not will need to be determined as she recovers from this significa nt medical event. Her recent CA-125 as an outpatient has been starting to climb, although it is stil l within normal range. Her CA-125 went from 8.3 to 16.8 to 24.3. It is probably not useful to measu re her CA-125 again at this time due to her peritoneal inflammation, which even without malignant dis ease will increase her CA-125. HISTORY OF PRESENT ILLNESS: Please see assessment. PAST MEDICAL HISTORY: Also remarkable for nonmelanoma skin cancer left forearm and arthritis. FAMILY HISTORY: Remarkable for her mother having kidney cancer at age 85 and her daughter having a H urthle cell cancer of the thyroid. SOCIAL HISTORY: She does not smoke. She drinks alcohol. She is to [place]. REVIEW OF SYSTEMS: Currently is remarkable for pain with movement. She is not currently having naus ea. She reports no chest pain at this time. Her 10 system review is otherwise unremarkable. PHYSICAL EXAMINATION: GENERAL: Reveals an alert woman who is in the intensive care unit with her gilbert jorge at the bedside. She is on pressor support at the moment for her blood pressure. HEENT: Shows pallor. NECK: Supple. LUNGS: Reveal no rales or rhonchi currently. CARDIAC: Exam reveals a regu lar rhythm at this time. ABDOMEN: Quiet. LABORATORY DATA: The patient's CBC at 6 a.m. this morning showed a white count of 14,680 with a hemo globin of 11.7, and platelet count of 282,000. Her INR was normal at 1.07. Her D-dimer not unexpect edly was quite elevated at 11.22. Her creatinine is elevated at 1.8, with a BUN of 64. Thank very much for allowing us to participate in this pleasant woman's care. We look forward to darwin carter in her management during this hospitalization and beyond. Copy requested to: Dr. Kt Weinberg /[id number]/MODL
[2018-04-12] MEDS ORDERED: POTASSIUM Cl (KCl) 50 ML IV ONE (19:40)
[2018-04-12] MEDS: FAMOTIDINE 20 MG/NACL 50 ML IV SCH (22:29)
[2018-04-13] MEDS: ALBUTEROL 60 PUFFS/8 GM MDI IH PRN ×3 (00:06→15:58)
[2018-04-13] MEDS ORDERED: POTASSIUM Cl (KCl) 50 ML IV ONE (01:45)
[2018-04-13] MEDS: D5W 1/2 NS W/ 20 KCl/L 1,000 ML IV SCH ×2 (07:56→21:47)
--- NOTE | 2018-04-13 08:59 | PDINTPN ---
Temporary Help Agency Referral Clerk Progress Note Assessment/Plan: Assessment/plan: * Perforated bowel * Status post laparotomy with sigmoid resection and colostomy and Adri's -likely back to OR for washout tomorrow * Asthma-poorly treated as an outpatient -will add Advair -continue frequent nebs * Acute respiratory failure-secondary to above -wean FiO2 as tolerated * History of ovarian cancer * Hypothyroid * Hypertension * Pain-well controlled -continue pain medications * VTE prophylaxis * Stress ulcer prophylaxis Subjective: Resting comfortably. Complains of mucous production with cough. Denies any breathlessness. Objective: Vital Signs Temp Pulse Resp BP Pulse Ox 36.9 C 90 27 H 123/61 H 93 04/13/18 01:00 04/13/18 07:00 04/13/18 07:00 04/13/18 08:05 04/13/18 07:00 Microbiology 04/11/18 22:53 Gram Stain - Final Peritoneal Fluid - Eswab Laboratory Results 04/12/18 06:00 04/13/18 05:55 04/12/18 04/13/18 04/14/18 05:59 05:59 05:59 Intake Total 5401 5260 Output Total 515 3025 Balance 4886 2235 PT 14.1 SEC (12.0-15.0) 04/11/18 15:06 INR 1.07 (0.83-1.16) 04/11/18 15:06 - Time Spent With Patient Time Spent With Patient: 35 min of time spent with patient, over 1/2 involved coordination of care or counseling. Case discussed with Nursing and Respiratory therapy Physical Exam - Physical Exam General Appearance: alert, no apparent distress EENT: PERRL/EOMI Neck: non-tender, supple Respiratory: prolonged expiration (Mild), No respiratory distress, No wheezing Cardiac/Chest: normal peripheral pulses, regular rate, rhythm Abdomen: soft, No normal bowel sounds, No non-tender Pelvic Exam: deferred Rectal: deferred Back: Normal inspection Skin: warm/dry Extremities: non-tender Neuro/Psych: alert, normal mood/affect, oriented x 3 ICD10 Worksheet Patient Problems: Problems Problem Status Onset EDGAR (acute kidney injury) Acute Atrial fibrillation Acute Free intraperitoneal air Acute Hypertension, malignant Acute
[2018-04-13] MEDS: FLUTICASONE/SALMETER 250/50MCG DISKUS IH SCH ×2 (09:19→20:39)
[2018-04-13] MEDS: FAMOTIDINE 20 MG/NACL 50 ML IV SCH ×2 (09:20→20:08)
[2018-04-13] MEDS: ERTAPENEM 1 GM in NS 100 ML IV SCH (09:20)
[2018-04-13] MEDS: CETIRIZINE 10 MG TAB PO SCH (09:20)
[2018-04-13] MEDS: FLUTICASONE NASAL 120 SPRAYS/16 GM MDI EACHNARE SCH (09:22)
[2018-04-13] MEDS: HYDROCODONE/APAP 5/325 TAB PO PRN (09:26)
[2018-04-13] MEDS: NOREPINEPHRINE BITARTRATE 4 MG in NS 500 ML IV SCH (09:33)
[2018-04-13] MEDS: FLUCONAZOLE/NaCl 100 ML IV SCH (10:36)
--- NOTE | 2018-04-13 13:04 | SOAPPROG ---
SOAP Progress Note Assessment/Plan: Assessment: 77yo F s/p ex-lap, sigmoidectomy, end ostomy, washout for perforated diverticulitis - VSS, HDS, off pressors as of this AM - pain is well controlled - abdomen is open, ok for PO meds and chips. Would NOT advance past this - bedrest 2/2 above, planning takeback tomorrow AM for washout, poss closure. Discussed this with the patient and her family. - making very good progress Plan: 04/13/18 13:02 Subjective: alert, pain controlled, hungry Objective: Vital Signs Temp Pulse Resp BP Pulse Ox 36.9 C 90 18 115/56 L 97 04/13/18 01:00 04/13/18 12:00 04/13/18 12:00 04/13/18 12:00 04/13/18 12:00 Microbiology 04/11/18 22:53 Gram Stain - Final Peritoneal Fluid - Eswab Laboratory Results 04/12/18 06:00 04/13/18 05:55 04/12/18 04/13/18 04/14/18 05:59 05:59 05:59 Intake Total 5401 5260 Output Total 515 3025 Balance 4886 2235 PT 14.1 SEC (12.0-15.0) 04/11/18 15:06 INR 1.07 (0.83-1.16) 04/11/18 15:06 ICD10 Worksheet Patient Problems: Problems Problem Status Onset EDGAR (acute kidney injury) Acute Atrial fibrillation Acute Free intraperitoneal air Acute Hypertension, malignant Acute
--- NOTE | 2018-04-13 15:43 | HOSPPROG ---
Hospitalist Progress Note Assessment/Plan: 77-year-old with a history of ovarian cancer is admitted with 2-3 days of increasing abdominal pain and found to have sigmoid bowel perforation likely related to her ovarian cancer treatment with Avastin # acute septic shock with end-organ failure requiring pressor support which was weaned off early this morning. Sepsis secondary to peritonitis * Status post sigmoidectomy, and ostomy, and washout for perforated diverticulitis * Abdomen currently is open, surgery planning take back tomorrow morning for washout and possible closure * P.o. Only for meds and chips * Appreciate surgical follow-up # acute respiratory failure secondary to asthma and sepsis. Status post extubation and currently doing well on supplemental oxygen. * Add Advair * Continue frequent nebulizers * Wean FiO2 as tolerated # history of ovarian cancer, appreciate oncology follow-up # hypothyroidism on replacement # history of hypertension, status post hypotension with sepsis now blood pressures are normotensive # VTE and ulcer prophylaxis Subjective: Patient new to me and chart reviewed, discussed in multidisciplinary rounds. Complains of some mild phlegm in her throat otherwise doing relatively well considering her illness. Pain is well controlled Objective: Vital Signs Temp Pulse Resp BP Pulse Ox 36.9 C 82 16 113/55 L 95 04/13/18 01:00 04/13/18 14:00 04/13/18 14:00 04/13/18 14:00 04/13/18 14:00 Microbiology 04/11/18 22:53 Gram Stain - Final Peritoneal Fluid - Eswab Laboratory Results 04/12/18 06:00 04/13/18 14:00 04/12/18 04/13/18 04/14/18 05:59 05:59 05:59 Intake Total 5401 5260 Output Total 515 3025 1000 Balance 4886 2235 -1000 PT 14.1 SEC (12.0-15.0) 04/11/18 15:06 INR 1.07 (0.83-1.16) 04/11/18 15:06 - Physical Exam Constitutional: uncomfortable Eyes: PERRL Ears, Nose, Mouth, Throat: moist mucous membranes Cardiovascular: regular rate and rhythym Respiratory: no respiratory distress, clear to auscultation Gastrointestinal: tenderness, distension, other (Occasional bowel sounds noted) Genitourinary: no bladder fullness Skin: No normal color (Slightly pale) Musculoskeletal: generalized weakness Neurologic: AAOx3 Psychiatric: interacting appropriately, not anxious ICD10 Worksheet Patient Problems: Problems Problem Status Onset EDGAR (acute kidney injury) Acute Atrial fibrillation Acute Free intraperitoneal air Acute Hypertension, malignant Acute
[2018-04-13] MEDS: HYDROmorphONE/DILAUDID 1 MG/ML INJ IVP PRN ×2 (17:46→21:46)
[2018-04-13] MEDS: ATORVASTATIN CALCIUM 10 MG TAB PO SCH (20:08)
[2018-04-14] MEDS ORDERED: POTASSIUM Cl (KCl) 50 ML IV ONE (01:25)
[2018-04-14] MEDS: HYDROmorphONE/DILAUDID 1 MG/ML INJ IVP PRN ×3 (04:09→19:55)
[2018-04-14 04:40] LABS: PLATELET COUNT 198 10^3/uL (150-400)
[2018-04-14] MEDS ORDERED: DILTIAZEM 25 MG/5 ML VIAL IVP ONE ×2 (07:21→07:30)
--- NOTE | 2018-04-14 07:41 | HOSPPROG ---
Hospitalist Progress Note Assessment/Plan: XC: AF w/ RVR this morning; tolerated Diltiazem 10 IV x1 well but with minimal effect. Will start drip since HR remains >150. Objective: Vital Signs Temp Pulse Resp BP Pulse Ox 37.5 C 137 H 20 113/81 H 97 04/14/18 04:00 04/14/18 07:34 04/14/18 06:00 04/14/18 07:34 04/14/18 06:00 Microbiology 04/11/18 22:53 Gram Stain - Final Peritoneal Fluid - Eswab Laboratory Results 04/14/18 04:10 04/14/18 04:10 04/13/18 04/14/18 04/15/18 05:59 05:59 05:59 Intake Total 5260 2301 Output Total 3025 3800 Balance 2235 -1499 PT 14.1 SEC (12.0-15.0) 04/11/18 15:06 INR 1.07 (0.83-1.16) 04/11/18 15:06 ICD10 Worksheet Patient Problems: Problems Problem Status Onset Hypertension, malignant Acute Atrial fibrillation Acute EDGAR (acute kidney injury) Acute Free intraperitoneal air Acute
[2018-04-14] MEDS ORDERED: DILTIAZEM HCL/D5W 125 ML IV SCH (07:45)
[2018-04-14] MEDS: CETIRIZINE 10 MG TAB PO SCH (08:55)
--- NOTE | 2018-04-14 08:55 | SOAPPROG ---
SOAP Progress Note Assessment/Plan: Assessment: 1. Bowel perforation-secondary to perforated diverticuliti, s/p sigmoidectomy, diverting ostomy. Mesenteric nodules seen at time of surgery. Path pending. 2. Recurrent ovarian cancer-on avastin maintenance 3. New onset rapid a fib. Plan: 1. Abdominal washout today 2. Will be at ongoing risk for poor wound healing/perforation for at least 3-6 weeks after last avastin which was on April 01 3. Follow up path from mesenteric biopsy. Subjective: awake, awaiting surgery Objective: Vital Signs Temp Pulse Resp BP Pulse Ox 37.5 C 150 H 25 H 112/66 94 04/14/18 04:00 04/14/18 08:46 04/14/18 08:46 04/14/18 08:46 04/14/18 08:46 Microbiology 04/11/18 22:53 Gram Stain - Final Peritoneal Fluid - Eswab Laboratory Results 04/14/18 04:10 04/14/18 04:10 04/13/18 04/14/18 04/15/18 05:59 05:59 05:59 Intake Total 5260 2301 Output Total 3025 3800 250 Balance 2235 -1499 -250 PT 14.1 SEC (12.0-15.0) 04/11/18 15:06 INR 1.07 (0.83-1.16) 04/11/18 15:06 Physical Exam - Physical Exam General Appearance: no apparent distress Cardiac/Chest: irregularly irregular Neuro/Psych: alert, oriented x 3 ICD10 Worksheet Patient Problems: Problems Problem Status Onset EDGAR (acute kidney injury) Acute Atrial fibrillation Acute Free intraperitoneal air Acute Hypertension, malignant Acute
[2018-04-14] MEDS: FLUCONAZOLE/NaCl 100 ML IV SCH (09:01)
[2018-04-14] MEDS: FAMOTIDINE 20 MG/NACL 50 ML IV SCH ×2 (09:01→19:56)
[2018-04-14] MEDS: ERTAPENEM 1 GM in NS 100 ML IV SCH (09:01)
[2018-04-14] MEDS: FLUTICASONE NASAL 120 SPRAYS/16 GM MDI EACHNARE SCH (09:10)
[2018-04-14] MEDS: FLUTICASONE/SALMETER 250/50MCG DISKUS IH SCH ×2 (09:16→20:11)
--- NOTE | 2018-04-14 09:26 | PDINTPN ---
Overhead Cleaner Progress Note Assessment/Plan: Assessment/plan: * Perforated bowel * Status post laparotomy with sigmoid resection and colostomy and Adri's -to OR for washout today * Asthma-improved -continue Advair -continue frequent nebs * Acute respiratory failure-secondary to above -wean FiO2 as tolerated * History of ovarian cancer -per Oncology * Hypothyroid * Hypertension * Pain-well controlled -continue pain medications * VTE prophylaxis * Stress ulcer prophylaxis Subjective: Resting comfortably in bed. Breathing easy. Cough is markedly improved. Objective: Vital Signs Temp Pulse Resp BP Pulse Ox 37.2 C 157 H 22 H 116/67 2 L 04/14/18 09:00 04/14/18 09:00 04/14/18 09:00 04/14/18 09:00 04/14/18 09:00 Microbiology 04/11/18 22:53 Gram Stain - Final Peritoneal Fluid - Eswab Laboratory Results 04/14/18 04:10 04/14/18 04:10 04/13/18 04/14/18 04/15/18 05:59 05:59 05:59 Intake Total 5260 2301 Output Total 3025 3800 250 Balance 2235 -1499 -250 PT 14.1 SEC (12.0-15.0) 04/11/18 15:06 INR 1.07 (0.83-1.16) 04/11/18 15:06 - Time Spent With Patient Time Spent With Patient: 35 min of time spent with patient, over 1/2 involved with coordination of care or counseling. Case discussed with Nursing and Oncology Physical Exam - Physical Exam General Appearance: WD/WN, alert, no apparent distress EENT: PERRL/EOMI Neck: non-tender, supple Respiratory: prolonged expiration, No respiratory distress, No wheezing Cardiac/Chest: normal peripheral pulses, regular rate, rhythm Peripheral Pulses: 2+: carotid (R), carotid (L), femoral (R), femoral (L), dorsalis-pedis (R), dorsalis-pedis (L) Abdomen: soft, No normal bowel sounds, No non-tender Pelvic Exam: deferred Rectal: deferred Skin: normal color, warm/dry Extremities: non-tender, normal inspection, normal capillary refill Neuro/Psych: alert, normal mood/affect, oriented x 3 ICD10 Worksheet Patient Problems: Problems Problem Status Onset EDGAR (acute kidney injury) Acute Atrial fibrillation Acute Free intraperitoneal air Acute Hypertension, malignant Acute
[2018-04-14] MEDS ORDERED: BUPIVACAINE 0.5% 30 ML SDV ONE (09:35)
[2018-04-14] MEDS: METOPROLOL TARTRATE 5 MG/5 ML INJ IVP SCH ×2 (09:43→12:42)
--- NOTE | 2018-04-14 10:46 | PDHPUP ---
History & Physical Update H&P update statement: This history and physical update is based on an assessment of the patient which was completed after admission or registration (within 24 hours), but prior to the surgery/procedure. H&P update: H&P reviewed & patient examined, changes noted H&P changes: in A-fib c RVR this AM. Dilt gtt started. Still needs washout today , hopefully once stable.
[2018-04-14] MEDS ORDERED: PROPOFOL/EMULSION 500 MG/50 ML BOTTLE IV ONE (11:02)
[2018-04-14] MEDS ORDERED: fentaNYL 250 MCG/5 ML INJ ONE (11:02)
--- NOTE | 2018-04-14 11:04 | HOSPPROG ---
Hospitalist Progress Note Assessment/Plan: 77-year-old with a history of ovarian cancer is admitted with 2-3 days of increasing abdominal pain and found to have sigmoid bowel perforation likely related to her ovarian cancer treatment with Avastin. Rapid AFib this morning. # atrial fibrillation, rapid rate minimal response to diltiazem, however heart rate improved significantly with lopressor IV however pressure dropped as well. * Continue rate control as able * Likely related to abdominal issues * Unable to anticoagulate currently due to upcoming surgery * Could consider amiodarone however risk of CVA since on no anticoagulation currently # acute septic shock with end-organ failure requiring pressor support which was weaned off early this morning. Sepsis secondary to peritonitis * Status post sigmoidectomy, and ostomy, and washout for perforated diverticulitis * Abdomen currently is open, surgery planning take back this morning for washout and possible closure, discussed with * P.o. Only for meds and chips * Appreciate surgical follow-up # acute respiratory failure secondary to asthma and sepsis. Status post extubation and currently doing well on supplemental oxygen. * Add Advair * Continue frequent nebulizers * Wean FiO2 as tolerated # history of ovarian cancer, appreciate oncology follow-up # hypothyroidism on replacement # history of hypertension, status post hypotension with sepsis now blood pressures are normotensive # VTE and ulcer prophylaxis Subjective: Patient discussed in multidisciplinary rounds. currently in rapid AFib however she is completely asymptomatic. No chest pain shortness of breath lightheadedness however she does complain of some abdominal discomfort. Objective: Vital Signs Temp Pulse Resp BP Pulse Ox 37.2 C 127 H 21 H 112/65 95 04/14/18 09:00 04/14/18 10:47 04/14/18 10:47 04/14/18 10:47 04/14/18 10:47 Microbiology 04/11/18 22:53 Gram Stain - Final Peritoneal Fluid - Eswab Laboratory Results 04/14/18 04:10 04/14/18 04:10 04/13/18 04/14/18 04/15/18 05:59 05:59 05:59 Intake Total 5260 2301 Output Total 3025 3800 250 Balance 2235 -1499 -250 PT 14.1 SEC (12.0-15.0) 04/11/18 15:06 INR 1.07 (0.83-1.16) 04/11/18 15:06 - Physical Exam Constitutional: chronically ill appearing, uncomfortable Eyes: PERRL Ears, Nose, Mouth, Throat: moist mucous membranes Cardiovascular: irregularly irregular, tachycardia Respiratory: no respiratory distress, clear to auscultation (Anteriorly) Gastrointestinal: tenderness, distension, other (Open wound), No normoactive bowel sounds (Occasional high-pitched bowel sounds) Genitourinary: alford in urethra Skin: No normal color (Pale) Musculoskeletal: generalized weakness Neurologic: AAOx3 Psychiatric: interacting appropriately ICD10 Worksheet Patient Problems: Problems Problem Status Onset Hypertension, malignant Acute Atrial fibrillation Acute EDGAR (acute kidney injury) Acute Free intraperitoneal air Acute
[2018-04-14] MEDS ORDERED: EPINEPHrine 1 MG/ML INJ ONE (11:47)
--- NOTE | 2018-04-14 11:55 | PDANEPAE ---
ANE History of Present Illness 77 y/o female with perforated sigmoid colon and subsequent peritonitis for exploratory lap, abdominal washout and possible abdominal wound closure. New onset A-fib. History of HTN and ovarian cancer. Today pulse rate at 180 new A- fib. On Diltiazem with rate slowed to 130's. 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 [facility] PLEURAL EFFUSIONS 05/02/2016 - Neurologic History Hx Cerebrovascular Accident: No Hx Seizures: No Hx Dementia: No - Endocrine History Hx Diabetes: No Endocrine History Comment: THYROID GOITER - Renal History Hx Renal Disorders: No - Liver History Hx Hepatic Disorders: No - Neurological & Psychiatric Hx Hx Neurological and Psychiatric Disorders: No - Cancer History Hx Cancer: Yes Cancer History Comment: OVARIAN WITH METS TO RECTUM - Congenital Disorder History Hx Congenital Disorders: No - GI History Hx Gastrointestinal Disorders: Yes Gastrointestinal History Comment: CONSTIPATION - Other Health History Other Health History: TRANSFUSION POST SURG 04/2016. OSTEOPENIA. ARTHRITIS - Chronic Pain History Chronic Pain: Yes (LOWER RT ABD) - Surgical History Prior Surgeries: HYSTERECTOMY/BSO SOB POST OP PLEURAL EFFUSION @ [facility] 05/01/2016. [facility] CATARACTS. D&C WITH ABLATION. SINUS ANE Review of Systems Review of systems is: negative Review of Systems: - Exercise capacity METS (RN): 4 METS ANE Patient History - Allergies Allergies/Adverse Reactions: tetracycline [Tetracycline] Allergy (Intermediate, Verified 04/11/18 14:37) Hives Penicillins Allergy (Mild, Verified 04/11/18 14:37) Rash resveratrol [grapes] Allergy (Verified 04/11/18 14:37) - Home Medications Home Medications: Cetirizine [ZyrTEC 10 mg (*)] 10 mg PO DAILY 07/01/14 [Last Taken 1 Day Ago ~] Cholecalciferol Vit D3 [Vitamin D3 (*)] 1,000 units PO DAILY 07/01/14 [Last Taken 1 Day Ago ~05/25/16] Lisinopril [Zestril 40 mg (*)] 40 mg PO DAILY 07/01/14 [Last Taken 1 Day Ago ~] Simvastatin [Zocor] 20 mg PO HS 07/01/14 [Last Taken 1 Week Ago ~05/19/16] Albuterol [Proventil Inhaler HFA (*)] 2 puffs IH Q6 PRN 04/11/18 [Last Taken Unknown] Chlorthalidone [Chlorthalidone 25 mg (*)] 25 mg PO DAILY 04/11/18 [Last Taken Unknown] Fluticasone Nasal [Flonase Nasal [place] (RX)] 2 sprays EACHNARE DAILY 04/11/18 [ Last Taken Unknown] Herbals/Supplements -Info Only 1 ea PO DAILY 04/11/18 [Last Taken Unknown] Methotrexate Sodium [Rheumatrex 2.5 mg (RX)] 7.5 mg PO FR 04/11/18 [Last Taken Unknown] Risedronate Sodium [Actonel] 150 mg PO Q30D 04/11/18 [Last Taken Unknown] - NPO status NPO Since - Liquids (Date): 04/10/18 NPO Since - Liquids (Time): 12:00 NPO Since - Solids (Date): 04/10/18 NPO Since - Solids (Time): 12:00 - Smoking Hx Smoking Status: Never smoked - Alcohol Use Alcohol Use: None ANE Labs/Vital Signs - Labs Result Diagrams: 04/14/18 04:10 04/14/18 04:10 - Vital Signs Blood Pressure: 112/65 Heart Rate: 127 Respiratory Rate: 21 O2 Sat (%): 95 Height: 160.02 cm Weight: 77.111 kg ANE Physical Exam - Airway Neck exam: FROM Mallampati Score: Class 2 Mouth exam: normal dental/mouth exam - Pulmonary Pulmonary: no respiratory distress - Cardiovascular Cardiovascular: irregularly irregular - ASA Status ASA Status: IV, E ANE Anesthesia Plan Anesthesia Plan: general endotracheal anesthesia
[2018-04-14] MEDS ORDERED: NALOXONE HCL 0.4 MG/ML INJ IVP PRN (11:57)
--- NOTE | 2018-04-14 12:30 | POSTOPPROG ---
Post Op Note Date of Operation: 04/14/18 Surgeon: Leodan Still Sharepoint Developer: Bay Costa MD Anesthesiologist: Guillermo Anesthesia: GET(General Endotracheal) Pre-op Diagnosis: Open abdomen, perforated diverticulitis Post-op Diagnosis: same Procedure: Washout, abdominal closure, VAC to fascia Findings: minimal contamination, fascia closed, VAC above fascia Inf/Abcess present in the surg proc area at time of surgery?: Yes Depth: Organ Space EBL: Minimal Total fluids administered: 3L NS washout Drains: Wound Vac
--- NOTE | 2018-04-14 13:08 | POSTANESTH ---
Post Anesthetic Evaluation Cardiovascular Status: Normal, Stable Respiratory Status: Normal, Stable Level of Consciousness/Mental Status: Mildly Sleepy, Arousable Pain Control: Adequate, Prn Tx Ordered Nausea/Vomiting Control: Adequate, Prn Tx Ordered Complications Possibly Related to Anesthesia: None Noted
[2018-04-14] MEDS: D5W 1/2 NS W/ 20 KCl/L 1,000 ML IV SCH (13:17)
[2018-04-14] MEDS ORDERED: METOPROLOL TARTRATE 5 MG/5 ML INJ IVP PRN (15:03)
--- NOTE | 2018-04-14 15:09 | GOP ---
[f rep st] OPERATIVE REPORT DATE OF OPERATION: 04/14/2018 SURGEON: Leodan Still MD ELECTRONICS DESIGN ENGINEER: Nilo Costa MD. ANESTHESIA: General endotracheal. ANESTHESIOLOGIST: Dr. Hiral Li MD PREOPERATIVE DIAGNOSIS: Perforated viscus with open abdomen. POSTOPERATIVE DIAGNOSIS: Perforated viscus with open abdomen. PROCEDURE PERFORMED: Exploratory laparotomy, abdominal washout with abdominal closure, and wound VAC placement. FINDINGS: There was some purulent fluid noted in the pelvis, but the remainder of the abdomen looked good. The small bowel and colon were a little bit dilated and the fascia came together under minima l tension. SPECIMENS: None. ESTIMATED BLOOD LOSS: 5 cc. DESCRIPTION OF PROCEDURE: The patient was greeted in the intensive care unit. Risks, benefits, and alternatives were discussed. She was then brought back to the operative suite, placed on the OR tabl e in supine position. After all anesthesia machines, including SCDs were on and functioning, a [employer] time-out was performed. After successful induction of general anesthesia, the p gracie's abdomen was prepped and draped in typical sterile fashion. The previous ABThera device was successfully removed. There was 1 internal retention suture, which h ad also broke. I commenced the procedure by first removing the remainder of the ABThera device. The underlying small bowel was pink. There were some adhesions. I then systematically interrogated all 4 quadrants. There was some purulent fluid noted in the pelvis, but all the other quadrants had wha t appeared to be mostly serous fluid. I irrigated the abdomen with 3 L of sterile saline noting suyapa r effluent in the suction canister. I found no other significant pathology or anything else that wou ld preclude closure. I then began closing the abdomen with a running #1 PDS suture throughout the closure. I also placed multiple interrupted #1 Prolene internal retention sutures. The fascia came together under minimal t ension. Local anesthesia was infiltrated into the fascia. A wound VAC was then placed over the fasc ia attached to suction at 125 mmHg. A new stoma appliance was placed to the patient's left quadrant colostomy. She was then extubated in the operative suite and taken to the PACU in satisfactory condi tion. DRAINS: Wound VAC over fascia. COUNTS: All counts were reported as correct x2. /[id number]/MODL
[2018-04-14] MEDS: ATORVASTATIN CALCIUM 10 MG TAB PO SCH (19:57)
[2018-04-15] MEDS: ALBUTEROL 60 PUFFS/8 GM MDI IH PRN ×2 (03:11→09:04)
[2018-04-15] MEDS: HYDROmorphONE/DILAUDID 1 MG/ML INJ IVP PRN ×2 (03:29→08:29)
[2018-04-15] MEDS ORDERED: MAGNESIUM SULF 1 GM/DEXTROSE 100 ML IV ONE (04:42)
[2018-04-15] MEDS: FLUCONAZOLE/NaCl 100 ML IV SCH (08:31)
[2018-04-15] MEDS: FAMOTIDINE 20 MG/NACL 50 ML IV SCH ×2 (08:31→20:28)
[2018-04-15] MEDS: CETIRIZINE 10 MG TAB PO SCH (08:33)
[2018-04-15] MEDS: ERTAPENEM 1 GM in NS 100 ML IV SCH (08:42)
[2018-04-15] MEDS: FLUTICASONE NASAL 120 SPRAYS/16 GM MDI EACHNARE SCH (08:42)
[2018-04-15] MEDS: FLUTICASONE/SALMETER 250/50MCG DISKUS IH SCH ×2 (09:02→20:28)
--- NOTE | 2018-04-15 09:03 | SOAPPROG ---
SOAP Progress Note Assessment/Plan: Assessment/plan: 77 y/o M s/p laparoscopy, laparotomy, sigmoid resection with colostomy and hartmans pouch for perforated sigmoid POD #4 S/p additional washout and fascial closure POD #1 Continue IV abx. Wound: continue wound vac. Will plan for vac change on Sunday Advance diet to clears. Ok to d/c alford. Downgrade to med/surg status. S: Pain controlled. O: Alert Afebrile VSS RRR Ctab, no increased wob Abdomen: soft, attp, moderately distended, + bowel sounds, wound vac to suction with good seal. 04/15/18 09:01 Objective: Vital Signs Temp Pulse Resp BP Pulse Ox 36.8 C 94 20 117/61 93 04/15/18 08:00 04/15/18 08:00 04/15/18 08:00 04/15/18 08:00 04/15/18 08:00 Microbiology 04/11/18 22:53 Gram Stain - Final Peritoneal Fluid - Eswab Laboratory Results 04/14/18 04:10 04/15/18 03:20 04/14/18 04/15/18 04/16/18 05:59 05:59 05:59 Intake Total 2301 2011 Output Total 3800 1125 Balance -1499 887 PT 14.1 SEC (12.0-15.0) 04/11/18 15:06 INR 1.07 (0.83-1.16) 04/11/18 15:06 ICD10 Worksheet Patient Problems: Problems Problem Status Onset EDGAR (acute kidney injury) Acute Atrial fibrillation Acute Free intraperitoneal air Acute Hypertension, malignant Acute
--- NOTE | 2018-04-15 12:23 | ASMTCMCOM ---
CM Note CM Note Notes: Pt underwent washout, therapies are still pending evals. CM to follow to determine discharge needs. Plan: TBD Date Signed: 04/15/2018 12:22 PM Electronically Signed By:EVIE Pacheco
--- NOTE | 2018-04-15 15:54 | HOSPPROG ---
Hospitalist Progress Note Assessment/Plan: 77-year-old with a history of ovarian cancer is admitted with 2-3 days of increasing abdominal pain and found to have sigmoid bowel perforation likely related to her ovarian cancer treatment with Avastin. Rapid AFib this morning. # atrial fibrillation yesterday. Converted to sinus rhythm. Responded well to beta-john paul rather than diltiazem * Continue to monitor * Likely related to abdominal issues * Unable to anticoagulate currently due to upcoming surgery # acute septic shock with end-organ failure requiring pressor support , resolved * Status post sigmoidectomy, and ostomy, and washout for perforated diverticulitis. * Abdomen fascia closed yesterday, wound VAC in place above fascia. Wound VAC change tomorrow * P.o. Only for meds and chips * Appreciate surgical follow-up # ileus secondary to above. Some bowel sounds present, tolerating sips and chips. No flat us know BMs # acute respiratory failure secondary to asthma and sepsis. Status post extubation and currently doing well on supplemental oxygen. * Add Advair * Continue frequent nebulizers * Wean FiO2 as tolerated # history of ovarian cancer, appreciate oncology follow-up # hypothyroidism on replacement # history of hypertension, status post hypotension with sepsis now blood pressures are normotensive # VTE and ulcer prophylaxis Subjective: Patient more comfortable today denies significant abdominal pain. No palpitations or chest pain. Objective: Vital Signs Temp Pulse Resp BP Pulse Ox 37.0 C 96 20 139/73 H 95 04/15/18 15:40 04/15/18 15:40 04/15/18 15:40 04/15/18 15:40 04/15/18 15:40 Microbiology 04/11/18 22:53 Gram Stain - Final Peritoneal Fluid - Eswab Laboratory Results 04/14/18 04:10 04/15/18 14:45 04/14/18 04/15/18 04/16/18 05:59 05:59 05:59 Intake Total 2301 2011 Output Total 3800 1125 250 Balance -1499 887 -250 PT 14.1 SEC (12.0-15.0) 04/11/18 15:06 INR 1.07 (0.83-1.16) 04/11/18 15:06 - Physical Exam Constitutional: chronically ill appearing, uncomfortable Eyes: PERRL Ears, Nose, Mouth, Throat: moist mucous membranes Cardiovascular: regular rate and rhythym Respiratory: no respiratory distress, clear to auscultation Gastrointestinal: distension, other (Wound VAC in place), No normoactive bowel sounds (Bowel sounds present but diminished) Genitourinary: no bladder fullness, No alford in urethra Skin: No normal color (Pain) Musculoskeletal: generalized weakness Neurologic: AAOx3 Psychiatric: interacting appropriately, not anxious ICD10 Worksheet Patient Problems: Problems Problem Status Onset Hypertension, malignant Acute Atrial fibrillation Acute EDGAR (acute kidney injury) Acute Free intraperitoneal air Acute
[2018-04-15] MEDS: D5W 1/2 NS W/ 20 KCl/L 1,000 ML IV SCH (17:06)
[2018-04-15] MEDS: ATORVASTATIN CALCIUM 10 MG TAB PO SCH (20:28)
[2018-04-16 05:35] LABS: PLATELET COUNT 227 10^3/uL (150-400)
[2018-04-16] MEDS: D5W 1/2 NS W/ 20 KCl/L 1,000 ML IV SCH (07:18)
[2018-04-16] MEDS ORDERED: MAGNESIUM SULF 1 GM/DEXTROSE 100 ML IV ONE (07:59)
[2018-04-16] MEDS: CETIRIZINE 10 MG TAB PO SCH (08:37)
[2018-04-16] MEDS: FAMOTIDINE 20 MG/NACL 50 ML IV SCH (08:39)
[2018-04-16] MEDS: FLUTICASONE NASAL 120 SPRAYS/16 GM MDI EACHNARE SCH (08:42)
[2018-04-16] MEDS: ALBUTEROL 60 PUFFS/8 GM MDI IH PRN (09:23)
[2018-04-16] MEDS: FLUTICASONE/SALMETER 250/50MCG DISKUS IH SCH ×2 (09:23→21:06)
[2018-04-16] MEDS: ERTAPENEM 1 GM in NS 100 ML IV SCH (09:58)
[2018-04-16] MEDS: FLUCONAZOLE/NaCl 100 ML IV SCH (10:33)
[2018-04-16] MEDS ORDERED: FUROSEMIDE 20 MG/2 ML VIAL IVP ONE (13:46)
--- NOTE | 2018-04-16 15:10 | SOAPPROG ---
SOAP Progress Note Assessment/Plan: Assessment: 77yo F s/p ex-lap, sigmoidectomy, end ostomy, washout for perforated diverticulitis - stable on [facility] floor - WBC up a little today, not unexpected - abdomen maybe a little distended, has good bowel sounds and stool in appliance - Reg diet, go slow - OOBTC, ambulate. - ok for LMWH today Plan: 04/13/18 13:02 04/16/18 15:09 Subjective: feels well, hungry Objective: Vital Signs Temp Pulse Resp BP Pulse Ox 36.6 C 90 27 H 132/79 H 96 04/16/18 10:59 04/16/18 10:59 04/16/18 10:59 04/16/18 10:59 04/16/18 10:59 Microbiology 04/11/18 22:53 Gram Stain - Final Peritoneal Fluid - Eswab Laboratory Results 04/16/18 05:15 04/16/18 11:50 04/15/18 04/16/18 04/17/18 05:59 05:59 05:59 Intake Total 2011 200 Output Total 1125 950 450 Balance 887 -750 -450 PT 14.1 SEC (12.0-15.0) 04/11/18 15:06 INR 1.07 (0.83-1.16) 04/11/18 15:06 ICD10 Worksheet Patient Problems: Problems Problem Status Onset EDGAR (acute kidney injury) Acute Atrial fibrillation Acute Free intraperitoneal air Acute Hypertension, malignant Acute
--- NOTE | 2018-04-16 15:44 | SOAPPROG ---
SOAP Progress Note Assessment/Plan: Assessment: 1) Recurrent Ovarian cancer 2) Perforated diverticulitis Plan: Patient has been transferred to Med/Surg floor from the ICU. Her post op pathology did confirm that there were tumor implants involving her sigmoid colon and omentum. I discussed this with the patient and her family. She will require a change in her systemic therapy as a result. This will be done in the outpatient setting by Dr. Avila (her primary Oncologist). No further Avastin therapy planned. She has a wound vac in place to help with post op wound healing Patient and family questions answered. Case d/w nursing. 04/16/18 15:38 04/16/18 15:40 Subjective: Patient has been transferred to Med / Surg floor. Family at bedside. She denies pain. Objective: Vital Signs Temp Pulse Resp BP Pulse Ox 36.6 C 90 27 H 132/79 H 96 04/16/18 10:59 04/16/18 10:59 04/16/18 10:59 04/16/18 10:59 04/16/18 10:59 Microbiology 04/11/18 22:53 Gram Stain - Final Peritoneal Fluid - Eswab Laboratory Results 04/16/18 05:15 04/16/18 11:50 04/15/18 04/16/18 04/17/18 05:59 05:59 05:59 Intake Total 2011 200 Output Total 1125 950 450 Balance 887 -750 -450 PT 14.1 SEC (12.0-15.0) 04/11/18 15:06 INR 1.07 (0.83-1.16) 04/11/18 15:06 - Time Spent With Patient Time Spent With Patient: 25 minutes Physical Exam - Physical Exam General Appearance: alert, no apparent distress EENT: PERRL/EOMI Abdomen: other (Midline incision with wound vac in place. Left sided colostomy. Minimal distension. Normoactive BS) Neuro/Psych: alert, normal mood/affect ICD10 Worksheet Patient Problems: Problems Problem Status Onset EDGAR (acute kidney injury) Acute Atrial fibrillation Acute Free intraperitoneal air Acute Hypertension, malignant Acute
[2018-04-16] MEDS ORDERED: IOHEXOL 350mgI/ML (OMNIPAQUE) 150 ML BTL IV ONE (15:53)
--- NOTE | 2018-04-16 17:44 | HOSPPROG ---
Hospitalist Progress Note Assessment/Plan: * Sigmoid bowel perf due to tumor implants and Avastin -s/p sigmoidectomy, ostomy, wash out (pelvis purulence) -wound vac * Ovarian cancer -per Dr. Osborn change chemo as outpatient * Septic shock s/p pressors * Acute respiratory failure s/p vent * Afib -likely due to critical illness on presentation - no recurrence -start low dose beta-john paul -consider 30 days anti-coagulation * HTN -BP lower than baseline - resume home meds as HTN returns * ARF - creatinine 2.9 on admission - now resolved * RA -holding MTX Subjective: No SOB, tolerating PO Objective: Vital Signs Temp Pulse Resp BP Pulse Ox 36.9 C 95 15 133/72 H 96 04/16/18 16:54 04/16/18 16:54 04/16/18 16:54 04/16/18 16:54 04/16/18 16:54 Microbiology 04/11/18 22:53 Gram Stain - Final Peritoneal Fluid - Eswab Laboratory Results 04/16/18 05:15 04/16/18 11:50 04/15/18 04/16/18 04/17/18 05:59 05:59 05:59 Intake Total 2011 200 Output Total 2576 206 5252 Balance 887 -750 -1600 PT 14.1 SEC (12.0-15.0) 04/11/18 15:06 INR 1.07 (0.83-1.16) 04/11/18 15:06 CTA chest - no PE, small effusions CXR viewed, my personal interpretations is - bigger effusions than last time - Physical Exam Constitutional: no apparent distress, appears nourished, not in pain Cardiovascular: regular rate and rhythym, no murmur, rub, or gallop Respiratory: no respiratory distress, no rales or rhonchi, clear to auscultation Gastrointestinal: normoactive bowel sounds, soft, non-tender abdomen, no palpable masses Skin: no rashes or abrasions, no fluctuance, no induration Neurologic: AAOx3, sensation intact bilaterally Psychiatric: interacting appropriately, not anxious, not encephalopathic, thought process linear ICD10 Worksheet Patient Problems: Problems Problem Status Onset Hypertension, malignant Acute Atrial fibrillation Acute EDGAR (acute kidney injury) Acute Free intraperitoneal air Acute
[2018-04-16] MEDS: ENOXAPARIN 40 MG/0.4 ML SYR SC SCH (18:44)
[2018-04-16] MEDS: METOPROLOL TARTRATE 25 MG TAB PO SCH (20:56)
[2018-04-16] MEDS: ATORVASTATIN CALCIUM 10 MG TAB PO SCH (20:56)
[2018-04-17 06:03] LABS: PLATELET COUNT 266 10^3/uL (150-400)
[2018-04-17] MEDS ORDERED: POTASSIUM CL 10 MEQ TAB PO ONE (08:48)
[2018-04-17] MEDS ORDERED: LISINOPRIL 40 MG TAB PO SCH (09:00)
[2018-04-17] MEDS ORDERED: CHLORTHALIDONE 25 MG TAB PO SCH (09:00)
[2018-04-17] MEDS ORDERED: amLODIPine BESYLATE 5 MG TAB PO SCH (09:00)
[2018-04-17] MEDS: FLUCONAZOLE/NaCl 100 ML IV SCH (09:07)
[2018-04-17] MEDS: FLUTICASONE NASAL 120 SPRAYS/16 GM MDI EACHNARE SCH (09:18)
[2018-04-17] MEDS: METOPROLOL TARTRATE 25 MG TAB PO SCH ×2 (09:19→20:36)
[2018-04-17] MEDS: CETIRIZINE 10 MG TAB PO SCH (09:19)
[2018-04-17] MEDS: LISINOPRIL 10 MG TAB PO SCH (09:20)
[2018-04-17] MEDS: ENOXAPARIN 40 MG/0.4 ML SYR SC SCH (09:21)
[2018-04-17] MEDS: HYDROCODONE/APAP 5/325 TAB PO PRN (09:22)
[2018-04-17] MEDS: FLUTICASONE/SALMETER 250/50MCG DISKUS IH SCH ×2 (09:40→21:14)
[2018-04-17] MEDS ORDERED: FUROSEMIDE 20 MG/2 ML VIAL IVP ONE (10:01)
--- NOTE | 2018-04-17 10:06 | HOSPPROG ---
Hospitalist Progress Note Assessment/Plan: # sigmoid perforation d/t diverticulitis with peritonitis s/p ostomy 04/12, washout 04/14 - cont [place] - cont invanz, diflucan - pain control with oxy, norco, dilaudid # ovarian cancer - mesenteric nodules on pathology - chemo as outpatient per oncology # acute resp failure s/p vent - better but still hypoxic - lasix iv again today # septic shock s/p pressors # htn - restarting some meds (metop 25 bid, lisino 10 was on 40 at home, holding norvasc) # a-fib - occurred during acute illness - metop started here - cont tele to document recurrences - if she has an additional would plan AC - will need outpatient monitoring # acute renal failure - resolved # RA - holding mtx - restart soon Subjective: doing "much better"; didn't know how sick she was; +ostomy output Objective: Vital Signs Temp Pulse Resp BP Pulse Ox 36.5 C 85 16 123/73 H 97 04/17/18 08:06 04/17/18 09:43 04/17/18 09:43 04/17/18 08:06 04/17/18 09:43 Microbiology 04/11/18 20:00 Blood Culture - Final Blood 04/11/18 19:45 Blood Culture - Final Blood 04/11/18 22:53 Gram Stain - Final Peritoneal Fluid - Eswab Laboratory Results 04/17/18 05:07 04/17/18 05:07 04/16/18 04/17/18 04/18/18 05:59 05:59 05:59 Intake Total 200 1040 Output Total 950 2775 175 Balance -750 -1735 -175 PT 14.1 SEC (12.0-15.0) 04/11/18 15:06 INR 1.07 (0.83-1.16) 04/11/18 15:[address] reviewed echo reviewed - Physical Exam Constitutional: no apparent distress, appears nourished Cardiovascular: regular rate and rhythym, no murmur, rub, or gallop Respiratory: no respiratory distress, no rales or rhonchi, clear to auscultation Gastrointestinal: normoactive bowel sounds, soft, non-tender abdomen, no palpable masses, distension (moderate), other (ostomy) ICD10 Worksheet Patient Problems: Problems Problem Status Onset Hypertension, malignant Acute Atrial fibrillation Acute EDGAR (acute kidney injury) Acute Free intraperitoneal air Acute
[2018-04-17] MEDS: HYDROmorphONE/DILAUDID 1 MG/ML INJ IVP PRN (10:14)
[2018-04-17] MEDS: ERTAPENEM 1 GM in NS 100 ML IV SCH (10:23)
--- NOTE | 2018-04-17 10:56 | WOCRNPDOC ---
JIMCRAntonia Advanced Assessment Note - Skin Integrity Problem, Advanced Assess Midline Abdomen Surgical Wound Dressing Type: Black Vac Foam, Wound Vac Dressing Description: Clean/Dry, Intact Exudate Amount: Scant Exudate Characteristic(s): Serosanguinous Integumentary Issue Intervention: Dressing Changed Diane Wound Tissue: Erythema (from 9 to 11 oclock from tegaderm. ) Wound Bed Constitution: Granulation Tissue (30%), Subcutaneous Fat (70%) Wound Edges: Attached Site Measurement - Head-to-Toe Length X Width X Depth (cm): 23.8x4.8x3.8 Skin Integrity Problem Comment: Vac dressing removed with adhesive releaser. Patient recieved PO hydrocodone prior to vac change and then 0.4 mg Dilaudid during vac change to manage pain. Flushed wound bed with ns and skin prep applied diane wound. One piece of medium black simplace foam applied to wound bed. Suction restarted at -125 mm Hg continuous wihtout any leaks. Next vac change due Sunday. Findings communicated to Tia Zambrano CRITICAL CARE NURSE SPECIALIST. Wound care will follow. - Colostomy Assessment, Advanced Left Lower Abdomen Colostomy Stoma Colostomy Appliance Intact: Yes Colostomy Appliance Currently in Use: Two Piece Flat, 2 3/4, Cut to Fit Stoma Color: [place], Red Stoma Turgor: Moist Stoma Shape: Round Stoma Height: Protruding Slightly Mucocutaneus Junction: Intact Colostomy Size - Head-to-Toe Length X Width X Depth (cm): 40mm Peristomal Skin: Intact Colostomy Comment/Treatment Details: Appliance needed to be changed as it was overlapped onto wound vac dressing. Stoma has a pale pink area about 1x1 cm in the center but the remainder is red. The stoma does not have much profile, and patient may need convexity as the swelling diminishes. Day one teaching done with patient, however she was reluctant to visualize stoma at this time. Written teaching material will be supplied today. Demonstrated how to open and close pouch for emptying. Patient verbalized understanding but didnt want to perform a return demonstration. Wound RN will follow. Reported to Tia DANG.
[2018-04-17] MEDS ORDERED: MAGNESIUM SULF 2 GM/WATER 50 ML IV ONE (11:07)
--- NOTE | 2018-04-17 13:03 | SOAPPROG ---
SOAP Progress Note Assessment/Plan: Assessment/plan: 77 y/o M s/p laparoscopy, laparotomy, sigmoid resection with colostomy and hartmans pouch for perforated sigmoid S/p additional washout and fascial closure Continue IV abx. Wound: continue wound vac. Will plan for vac change on Sunday Dispo: pending. Likely d/c to rehab after vac change on Sunday. Will discuss with CM. S: Pain controlled. Tolerating regular diet and having stool output into appliance. Denies n/v. O: Alert Afebrile VSS RRR Ctab, no increased wob Abdomen: soft, attp, moderately distended, + bowel sounds, wound vac taken down to reveal clean wound with healthy granulation tissue throughout. 04/17/18 13:00 Objective: Vital Signs Temp Pulse Resp BP Pulse Ox 36.6 C 85 20 113/63 96 04/17/18 12:08 04/17/18 12:08 04/17/18 12:08 04/17/18 12:08 04/17/18 12:08 Microbiology 04/11/18 22:53 Gram Stain - Final Peritoneal Fluid - Eswab 04/11/18 20:00 Blood Culture - Final Blood 04/11/18 19:45 Blood Culture - Final Blood Laboratory Results 04/17/18 05:07 04/17/18 05:07 04/16/18 04/17/18 04/18/18 05:59 05:59 05:59 Intake Total 200 1040 Output Total 950 2775 175 Balance -750 -1735 -175 PT 14.1 SEC (12.0-15.0) 04/11/18 15:06 INR 1.07 (0.83-1.16) 04/11/18 15:06 ICD10 Worksheet Patient Problems: Problems Problem Status Onset EDGAR (acute kidney injury) Acute Atrial fibrillation Acute Free intraperitoneal air Acute Hypertension, malignant Acute
--- NOTE | 2018-04-17 16:24 | ASMTCMCOM ---
CM Note CM Note Notes: Met with pt and son re; dc SNF. Pt is agreeable, son will research some places and let CM know. DC Plan: SNF Date Signed: 04/17/2018 04:23 PM Electronically Signed By:Shelbie Martinez RN
[2018-04-17] MEDS: ATORVASTATIN CALCIUM 10 MG TAB PO SCH (20:36)
[2018-04-18] MEDS ORDERED: POTASSIUM CL 10 MEQ TAB PO ONE ×3 (01:00→19:31)
[2018-04-18 05:20] LABS: PLATELET COUNT 266 10^3/uL (150-400)
[2018-04-18] MEDS: FLUTICASONE/SALMETER 250/50MCG DISKUS IH SCH ×2 (09:46→21:12)
[2018-04-18] MEDS: ALBUTEROL 60 PUFFS/8 GM MDI IH PRN (09:47)
[2018-04-18] MEDS: LISINOPRIL 10 MG TAB PO SCH (09:52)
[2018-04-18] MEDS: FLUCONAZOLE/NaCl 100 ML IV SCH (09:52)
[2018-04-18] MEDS: METOPROLOL TARTRATE 25 MG TAB PO SCH ×2 (09:52→20:29)
[2018-04-18] MEDS: CETIRIZINE 10 MG TAB PO SCH (09:52)
[2018-04-18] MEDS: ENOXAPARIN 40 MG/0.4 ML SYR SC SCH (09:53)
[2018-04-18] MEDS: FLUTICASONE NASAL 120 SPRAYS/16 GM MDI EACHNARE SCH (10:04)
[2018-04-18] MEDS: ERTAPENEM 1 GM in NS 100 ML IV SCH (11:08)
--- NOTE | 2018-04-18 11:21 | ASMTCMCOM ---
CM Note CM Note Notes: Received email from pt's son and daughter, they would like a referral sent to [facility] in [place]. Other choices are [facility], [facility], and [facility]. DC Plan: SNF Date Signed: 04/18/2018 11:20 AM Electronically Signed By:Shelbie Martinez RN
[2018-04-18] MEDS ORDERED: MAGNESIUM SULF 1 GM/DEXTROSE 100 ML IV ONE (11:47)
--- NOTE | 2018-04-18 11:55 | SOAPPROG ---
SOAP Progress Note Assessment/Plan: Assessment/plan: 77 y/o M s/p laparoscopy, laparotomy, sigmoid resection with colostomy and hartmans pouch for perforated sigmoid S/p additional washout and fascial closure Continue IV abx. Wound: continue wound vac. Will plan for vac change on Sunday Dispo: pending. Likely d/c to rehab after vac change on Sunday. Will discuss with CM. S: Pain controlled. Tolerating regular diet and having stool output into appliance. Denies n/v. O: Alert Afebrile VSS RRR Ctab, no increased wob Abdomen: soft, attp, moderately distended, + bowel sounds, wound vac to suction 04/18/18 11:54 Objective: Vital Signs Temp Pulse Resp BP Pulse Ox 37.0 C 94 22 H 133/72 H 94 04/18/18 11:39 04/18/18 11:39 04/18/18 11:39 04/18/18 11:39 04/18/18 11:39 Microbiology 04/11/18 22:53 Gram Stain - Final Peritoneal Fluid - Eswab 04/11/18 20:00 Blood Culture - Final Blood 04/11/18 19:45 Blood Culture - Final Blood Laboratory Results 04/18/18 04:50 04/18/18 04:50 04/17/18 04/18/18 04/19/18 05:59 05:59 05:59 Intake Total 1040 1500 Output Total 2775 1075 Balance -1735 425 PT 14.1 SEC (12.0-15.0) 04/11/18 15:06 INR 1.07 (0.83-1.16) 04/11/18 15:06 ICD10 Worksheet Patient Problems: Problems Problem Status Onset EDGAR (acute kidney injury) Acute Atrial fibrillation Acute Free intraperitoneal air Acute Hypertension, malignant Acute
--- NOTE | 2018-04-18 12:48 | SOAPPROG ---
RICKIE Progress Note Assessment/Plan: Assessment: 77-YEAR-OLD FEMALE WITH OVARIAN CANCER WHO IS STATUS POST CHEMOTHERAPY WELL THE STATUS POST TOTAL ABDOMINAL HYSTERECTOMY AND OMENTECTOMY. SHE PRESENTS TONIGHT WITH SUDDEN ABDOMINAL PAIN AND CT SCAN REVEALS A SMALL AMOUNT OF FREE AIR IN THE EPIGASTRIUM AND UPPER ABDOMEN. NO EVIDENCE OF TUMOR RECURRENCE BOWEL OBSTRUCTION OR OTHER ETIOLOGIES 80 CM2 RECENT [place] [address] SHE DOES HAVE A LOW-GRADE FEVER HEENT NONICTERIC/CHEST CLEAR AND SYMMETRIC/COR REGULAR TACHYCARDIA WITH AFIB ABDOMEN IS SOFT BUT DISTENDED AND TENDER IN THE EPIGASTRIUM WITH DECREASED BOWEL SOUNDS IMPRESSION IS FREE AIR CONSISTENT WITH A VISCERAL PERFORATION Plan: TO THE OR FOR LAPAROSCOPY AND/OR LAPAROTOMY/RISKS AND OPTIONS BEEN FULLY DISCUSSED WITH THE PATIENT AND FAMILY WHO WISH TO PROCEED 04/11/18 22:02 Objective: Vital Signs Temp Pulse Resp BP Pulse Ox 37.0 C 94 22 H 133/72 H 94 04/18/18 11:39 04/18/18 11:39 04/18/18 11:39 04/18/18 11:39 04/18/18 11:39 Microbiology 04/11/18 22:53 Gram Stain - Final Peritoneal Fluid - Eswab 04/11/18 20:00 Blood Culture - Final Blood 04/11/18 19:45 Blood Culture - Final Blood Laboratory Results 04/18/18 04:50 04/18/18 04:50 04/17/18 04/18/18 04/19/18 05:59 05:59 05:59 Intake Total 1040 1500 Output Total 2775 1075 Balance -1735 425 PT 14.1 SEC (12.0-15.0) 04/11/18 15:06 INR 1.07 (0.83-1.16) 04/11/18 15:06 ICD10 Worksheet Patient Problems: Problems Problem Status Onset EDGAR (acute kidney injury) Acute Atrial fibrillation Acute Free intraperitoneal air Acute Hypertension, malignant Acute
--- NOTE | 2018-04-18 14:32 | HOSPPROG ---
Hospitalist Progress Note Assessment/Plan: # sigmoid perforation d/t diverticulitis with peritonitis s/p ostomy 04/12, washout 04/14 - cont [place] - cont invanz, diflucan D#7 - pain control with oxy, norco, dilaudid # ovarian cancer - mesenteric nodules on pathology - chemo as outpatient per oncology # acute resp failure s/p vent - better but still hypoxic - s/p lasix IV x 1 - bicarb rising, will hold diuresis # septic shock s/p pressors # htn - restarting some meds (metop 25 bid, lisino 10 was on 40 at home, holding norvasc) # a-fib - occurred during acute illness - [id number] 4 - metop started here - no recurrences on tele - if she has an additional would plan AC - will need outpatient monitoring # acute renal failure - resolved # RA - holding mtx - restart soon Subjective: ambulating; eating small amounts of food; Objective: Vital Signs Temp Pulse Resp BP Pulse Ox 37.0 C 94 22 H 133/72 H 94 04/18/18 11:39 04/18/18 11:39 04/18/18 11:39 04/18/18 11:39 04/18/18 11:39 Microbiology 04/11/18 22:53 Gram Stain - Final Peritoneal Fluid - Eswab Anaerobic Culture - Final Streptococcus Anginosus Group Haemophilus Parainfluenza 04/11/18 20:00 Blood Culture - Final Blood 04/11/18 19:45 Blood Culture - Final Blood Laboratory Results 04/18/18 04:50 04/18/18 04:50 04/17/18 04/18/18 04/19/18 05:59 05:59 05:59 Intake Total 1040 1500 Output Total 2775 1075 Balance -1735 425 PT 14.1 SEC (12.0-15.0) 04/11/18 15:06 INR 1.07 (0.83-1.16) 04/11/18 15:06 tele personally reviewed - Physical Exam Constitutional: no apparent distress, appears nourished Cardiovascular: regular rate and rhythym, no murmur, rub, or gallop Respiratory: no respiratory distress, no rales or rhonchi, clear to auscultation Gastrointestinal: other (wound vac, ostomy; diffuse TTP) ICD10 Worksheet Patient Problems: Problems Problem Status Onset Hypertension, malignant Acute Atrial fibrillation Acute EDGAR (acute kidney injury) Acute Free intraperitoneal air Acute
[2018-04-18] MEDS: ATORVASTATIN CALCIUM 10 MG TAB PO SCH (20:28)
[2018-04-18] MEDS: HYDROCODONE/APAP 5/325 TAB PO PRN (20:34)
[2018-04-19] MEDS ORDERED: POTASSIUM CL 10 MEQ TAB PO ONE (07:31)
[2018-04-19] MEDS: FLUTICASONE/SALMETER 250/50MCG DISKUS IH SCH (08:23)
[2018-04-19] MEDS: CETIRIZINE 10 MG TAB PO SCH (08:44)
[2018-04-19] MEDS: METOPROLOL TARTRATE 25 MG TAB PO SCH (08:44)
[2018-04-19] MEDS: ERTAPENEM 1 GM in NS 100 ML IV SCH (08:45)
[2018-04-19] MEDS: ENOXAPARIN 40 MG/0.4 ML SYR SC SCH (08:45)
[2018-04-19] MEDS: LISINOPRIL 10 MG TAB PO SCH (08:45)
[2018-04-19] MEDS: FLUTICASONE NASAL 120 SPRAYS/16 GM MDI EACHNARE SCH (08:46)
[2018-04-19] MEDS: FLUCONAZOLE/NaCl 100 ML IV SCH (09:40)
[2018-04-19] MEDS: HYDROmorphONE/DILAUDID 1 MG/ML INJ IVP PRN (09:53)
--- NOTE | 2018-04-19 10:09 | SOAPPROG ---
SOAP Progress Note Assessment/Plan: Assessment/plan: 77 y/o M s/p laparoscopy, laparotomy, sigmoid resection with colostomy and hartmans pouch for perforated sigmoid S/p additional washout and fascial closure Continue IV abx. Wound: Vac change today. Continue wound vac upon discharge. Dispo: Pt amenable to going to SNF. Family has been looking into options. Likely can be discharged over the weekend. S: Pain controlled. Tolerating regular diet and having stool output into appliance. Denies n/v. O: Alert Afebrile VSS RRR Ctab, no increased wob Abdomen: soft, attp, moderately distended, ostomy pink with adequate profile, liquid stool in appliance, + bowel sounds, wound vac to suction 04/19/18 10:06 Objective: Vital Signs Temp Pulse Resp BP Pulse Ox 37.2 C 107 H 20 150/80 H 92 04/19/18 07:31 04/19/18 08:44 04/19/18 08:36 04/19/18 08:45 04/19/18 08:36 Microbiology 04/11/18 22:53 Gram Stain - Final Peritoneal Fluid - Eswab Anaerobic Culture - Final Streptococcus Anginosus Group Haemophilus Parainfluenza Laboratory Results 04/18/18 04:50 04/19/18 03:25 04/18/18 04/19/18 04/20/18 05:59 05:59 05:59 Intake Total 1500 600 Output Total 1075 350 300 Balance 425 250 -300 PT 14.1 SEC (12.0-15.0) 04/11/18 15:06 INR 1.07 (0.83-1.16) 04/11/18 15:06 ICD10 Worksheet Patient Problems: Problems Problem Status Onset EDGAR (acute kidney injury) Acute Atrial fibrillation Acute Free intraperitoneal air Acute Hypertension, malignant Acute
--- NOTE | 2018-04-19 10:47 | WOCRNPDOC ---
TESS Advanced Assessment Note - Skin Integrity Problem, Advanced Assess Midline Abdomen Surgical Wound Dressing Type: Black Vac Foam (x1), Wound Vac Dressing Description: Clean/Dry, Intact Closure Description: Retention Sutures Exudate Amount: Scant Exudate Characteristic(s): Serosanguinous Integumentary Issue Intervention: Dressing Changed Wound Bed Constitution: Granulation Tissue (90%) Wound Edges: Attached Site Measurement - Head-to-Toe Length X Width X Depth (cm): 22.5x4.6x3.8 Skin Integrity Problem Comment: Removed drape with adhesive releaser. Flushed wound with ns. Skin prep applied osiel wound and drape. Two pieces of medium simplace black foam applied to wound bed. Suction restarted at -125 continuous without leaks. Patient was premedicated with dilaudid and tolerated dressing change well. Next change due Sunday. Reported to Dr. Solo and Tia Zambrano NP. Wound care will follow. - Colostomy Assessment, Advanced Left Lower Abdomen Colostomy Stoma Colostomy Appliance Intact: Yes Colostomy Appliance Currently in Use: Two Piece Flat, 2 3/4, Cut to Fit Colostomy Comment/Treatment Details: Patient reports having read "a little" but that she is unable to retain anything at this time. She does not have any questions for human resources operations coordinator and does not want any teaching at this time. She agreed to emtpy her appliance today. Patient still would not look down and visualize her pouch. Reported the hesitation to learn to Tia Zambrano NP, Dr. Solo and ADRIANA Taylor.
[2018-04-19 12:45] VITALS: BP 108/63
--- NOTE | 2018-04-19 14:26 | ASMTLACE ---
LACE Length of stay for Answers: 7-13 days current admission Acuity / Level of Answers: Yes Care: Did the patient have an inpatient admission? Comorbidities - select Answers: Any tumor (including all that apply lymphoma or leukemia) Opioid dependence / Chronic pain Other Notes: HTN; Hypothyroid # of Emergency department Answers: 1-2 visits in the last 6 months Score: 16 Date Signed: 04/19/2018 02:25 PM Electronically Signed By:Shelbie Martinez RN
--- NOTE | 2018-04-19 14:47 | ASMTDCNOTE ---
Case Management Discharge Discharge Order Complete? Answers: Yes Patient to Obtain Answers: Other Notes: [facility] Transportation Arranged Answers: Other Notes: [facility] will Pick (Date 04/19/2018 04:00 PM & Time) Faxed Final Orders Answers: Yes Agency/Facility Transfer Answers: Yes Report Printed & Faxed to Receiving Agency Family Notified Answers: Yes Discharge Comments Notes: D/w MD, final orders faxed. Lou at [facility] notified and wound vac available. RN to call report, pt will dc on oral abx. Date Signed: 04/19/2018 02:46 PM Electronically Signed By:Shelbie Martinez RN
--- NOTE | 2018-04-19 15:32 | PDIAF ---
- Diagnosis Diagnosis: Sigmoid Perforation Code Status: Full Code - Medication Management [facility] Antibiotics: levaquin 750mg PO daily and flagyl 500mg PO TID for 7 days Discharge Medications: electronically signed and located in the Home Medication List. - Orders Services needed: Registered Nurse, Certified Manager Legal, Physical Therapy, Occupational Therapy Isolation Type: None Diet Recommendation: no restrictions on diet Additional Instructions: Wound vac changes 3x/week. -125 mm Hg continuous suction Ok to shower. Avoid heavy lifting for 6 weeks. Follow up with Dr. Costa in one week. Call with fever, chills or increased pain. - Labs/Radiology BMP Date: 04/24/18 CBC w/diff Date: 04/24/18 - Follow Up Care Current Providers and Referrals: Nilo Costa MD [Medical Doctor] - follow up in 1 week NONE *PRIMARY CARE P,. [Unknown] - As per Instructions
--- NOTE | 2018-04-19 16:02 | GDS ---
[f rep st] DISCHARGE SUMMARY DATE OF ADMISSION: 04/11/2018. DATE OF DISCHARGE: 04/19/2018. DISCHARGE DIAGNOSES: 1. Sigmoid perforation due to diverticulitis with subsequent peritonitis, status post ostomy placeme nt. 2. Ovarian cancer with mesenteric nodules identified on pathology. 3. Acute respiratory failure, status post mechanical ventilation. 4. Septic shock requiring pressors, now resolved. 5. Hypertension, resuming some of her home medications. 6. Atrial fibrillation, which occurred during her acute illness. 7. Acute renal failure, resolved. 8. Rheumatoid arthritis. PROCEDURES: 1. 04/12/2018, Dr. Costa: Laparoscopy with sigmoid resection, colostomy, and Adri's. 2. 04/14/2018, Dr. Still: Washout with abdominal closure and wound VAC placement. HOSPITAL COURSE: This is a 77-year-old female with a history of ovarian cancer, who presented with a bdominal pain. Initial imaging showed free air with suspected sigmoid perforation. This was confirm ed on laparoscopy. She had a sigmoid resection with ostomy placement as well as a Adri pouch. S he had a subsequent washout with fascial closure 2 days later on 04/14/2017. Microbiology has grown strep anginosus as well as Haemophilus parainfluenza. She has been treated with broad-spectrum IV an tibiotics, including Invanz as well as Diflucan. There have been no fungal isolates identified. On discharge, her ostomy is making good output and she is tolerating a full diet. Her white count has a lmost normalized; it was 10.5 the day prior to discharge. She is still requiring a small amount of o xygen. Her ICU course was notable for mechanical ventilation for a few days, as well as septic shock requiri ng pressors. This has all resolved and some of her outpatient antihypertensives have been restarted. In terms of ongoing antibiotics, she should receive an additional 7 days of oral antibiotics with Lev aquin, as well as Flagyl. For her ovarian cancer, she should follow up with Dr. Avila, her primary oncologist, when she is c ompletely over this acute illness. For her hypertension, she has been placed on metoprolol 25 twice daily, as well as lisinopril 10. Sh e was on Norvasc, as well as lisinopril 40 at home. She had 2 episodes of atrial fibrillation during her acute illness. These have resolved. She had be en placed on metoprolol for rhythm control. She had been monitored on telemetry with no additional r ecurrences. Thus, she has not been placed on systemic anticoagulation. Her CHADS-VASc score is 4. If she has further recurrences of atrial fibrillation, she would warrant anticoagulation. FOLLOWUP: 1. Dr. Costa within [address] Avila when she is over her acute illness. BILLING: I spent more than 30 minutes on the day of discharge coordinating care. /[id number]/MODL
--- NOTE | 2018-04-22 21:49 | CPEKG ---
Test Reason : OPEN Blood Pressure : / mmHG Vent. Rate : 082 BPM Atrial Rate : 082 BPM P-R Int : 147 ms QRS Dur : 081 ms QT Int : 393 ms P-R-T Axes : 057 062 050 degrees QTc Int : 459 ms Sinus rhythm Confirmed by Kt Beckett ([id number] on 04/22/2018 9:48:38 PM Referred By: Atul Keyes Confirmed By:Kt Beckett
== END 2018-04-19 16:30 | DRG 853 ==
LOC: F2N 18:17 → F3E 04-15 11:10
PROVIDERS: ADMIT Family Medicine; ATTEND Student in an Organized Health Care Education/Training Program
PROC: 02HV33Z Insertion of Infusion Device into Superior Vena Cava, Percutaneous Approach (ICD-10-PCS; 2018-04-11)
PROC: 0D1M0Z4 Bypass Descending Colon to Cutaneous, Open Approach (ICD-10-PCS; principal; 2018-04-11 20:00)
PROC: 0DTN0ZZ Resection of Sigmoid Colon, Open Approach (ICD-10-PCS; principal; 2018-04-11 20:00)
PROC: 0WQF0ZZ Repair Abdominal Wall, Open Approach (ICD-10-PCS; 2018-04-14)
DX: A41.9 Sepsis, unspecified organism (principal); R65.21 Severe sepsis with septic shock; K57.20 Diverticulitis of large intestine with perforation and abscess without bleeding; J96.01 Acute respiratory failure with hypoxia; J96.02 Acute respiratory failure with hypercapnia; N17.9 Acute kidney failure, unspecified; E87.2 Acidosis; J45.909 Unspecified asthma, uncomplicated; C78.5 Secondary malignant neoplasm of large intestine and rectum; C78.6 Secondary malignant neoplasm of retroperitoneum and peritoneum; I10 Essential (primary) hypertension; E03.9 Hypothyroidism, unspecified; I48.91 Unspecified atrial fibrillation; M06.9 Rheumatoid arthritis, unspecified; E87.6 Hypokalemia; E78.00 Pure hypercholesterolemia, unspecified; Z85.43 Personal history of malignant neoplasm of ovary; Z79.899 Other long term (current) drug therapy
CPT/HCPCS: 82435-PO; 82565-PO; 82947-PO; 84132-PO; 84295-PO; 84484-ER; 84520-PO; 85014-ER; 96365; 96366; 97116-GP; 97161-GP; 97166-GO; 97530-GO; 97530-GP; 97535-GO; J0171; J1160; J1170; J1335; J1450; J1650; J1940; J2405; J2704; J2997; J3010; J3475; J3480; P9041; Q9967